=== PATIENT | female | born 1990 | race Caucasian/White ===

== ENCOUNTER → 2016-11-12 | Outpatient (REF) | payer OTHER | LOC: M SFHCLERA 20:13 | PROVIDERS: ATTEND Nurse Practitioner Family | DX: R10.9 Unspecified abdominal pain (principal) ==

== ENCOUNTER 2018-04-12 19:52 | Emergency (ER) | payer OTHER ==
[2018-04-12 22:05] LABS: HEMATOCRIT 39.7 % (36.0-47.0); MEAN CORPUSCULAR HEMOGLOBIN 29.1 pg (27.0-33.0); MEAN CORPUSCULAR HGB CONC 32.7 g/dl (32.0-36.5); PLATELET COUNT, AUTOMATED 331 10^3/uL (150-450); RED BLOOD COUNT 4.46 10^6/uL (4.00-5.40); RED CELL DISTRIBUTION WIDTH 12.9 % (11.5-14.5); WHITE BLOOD COUNT 9.5 10^3/uL (4.0-10.0)
[2018-04-12] MEDS: IBUPROFEN 600 MG TAB PO (22:05)
[2018-04-12 22:19] LABS: AMORPHOUS SEDIMENT RFX LARGE (NEGATIVE); KETONE, URINE AUTO RFX NEGATIVE (NEGATIVE); LEUKOCYTE ESTERASE UR AUTO RFX NEGATIVE (NEGATIVE); NITRITE, URINE AUTO RFX NEGATIVE (NEGATIVE); RBC, URINE AUTO RFX 1 /HPF (0-3); SPECIFIC GRAVITY UR AUTO RFX 1.013 (1.002-1.035); SQUAM EPITHELIAL CELL UR AURFX 0 /HPF (0-6); WBC, URINE AUTO RFX 2 /HPF (0-3)
[2018-04-12 22:20] LABS: ANION GAP 6 MEQ/L (8-16); BLOOD UREA NITROGEN 10 MG/DL (7-18); CALCIUM LEVEL 8.9 MG/DL (8.5-10.1); CARBON DIOXIDE LEVEL 26 MEQ/L (21-32); CHLORIDE LEVEL 109 MEQ/L (98-107); GLOMERULAR FILTRATION RATE > 60.0 (>60); GLUCOSE, FASTING 96 MG/DL (70-100); SODIUM LEVEL 141 MEQ/L (136-145)
[2018-04-12] MEDS: diazePAM 10 MG TAB PO (22:45)
== END 2018-04-12 22:51 | disposition home or self-care (01) ==
LOC: M ED 19:52
DX: M54.6 Pain in thoracic spine (principal); E11.9 Type 2 diabetes mellitus without complications; Z79.84 Long term (current) use of oral hypoglycemic drugs; Z79.899 Other long term (current) drug therapy; Z88.5 Allergy status to narcotic agent; Z88.1 Allergy status to other antibiotic agents
CPT/HCPCS: 80048

== ENCOUNTER → 2018-08-23 | Outpatient (REF) | payer OTHER ==
[~2018-08-23] MED LIST: CETI10TA; DULO30CA PO; IBUP-1022 PO; METF750T; PANT40TA3; PRENCHW PO; SERT-155; SOMA350T PO; TOPI50TA9; VITAD1000T PO; WELLTAB40
== END ==
LOC: M SFHCLERA 17:07
PROVIDERS: ATTEND Physician Assistant
DX: J03.90 Acute tonsillitis, unspecified (principal)

== ENCOUNTER 2018-08-25 18:02 | Emergency (ER) | payer OTHER ==
[~2018-08-25] VITALS: Ht 157.5 cm; Wt 123.6 kg
[~2018-08-25 18:02] MED LIST changes: -DULO30CA PO; -PRENCHW PO; -VITAD1000T PO
[2018-08-25] MEDS ORDERED: VITAD1000T PO (18:08)
[2018-08-25] MEDS ORDERED: DULO30CA PO (18:08)
[2018-08-25] MEDS ORDERED: PRENCHW PO (18:08)
[2018-08-25 18:39] LABS: BASO % 0.3 % (0.0-1.0); EOS # 0.2 10^3/uL (0.0-0.50); EOS % 1.6 % (0.0-3.0); HEMATOCRIT 39.8 % (36.0-47.0); HEMOGLOBIN 13.6 g/dl (12.0-15.5); LYMPH # 3.2 10^3/uL (1.5-6.5); LYMPH % 34.5 % (24.0-44.0); MEAN CORPUSCULAR HEMOGLOBIN 29.8 pg (27.0-33.0); MEAN CORPUSCULAR HGB CONC 34.2 g/dl (32.0-36.5); MEAN CORPUSCULAR VOLUME 87.3 fl (80.0-96.0); MONO # 0.6 10^3/uL (0.0-0.8); MONO % 6.4 % (0.0-5.0); NEUTROPHILS # 5.4 10^3/uL (1.8-7.7); NEUTROPHILS % 56.9 % (36.0-66.0); PLATELET COUNT, AUTOMATED 312 10^3/uL (150-450); RED BLOOD COUNT 4.56 10^6/uL (4.00-5.40); WHITE BLOOD COUNT 9.4 10^3/uL (4.0-10.0)
[2018-08-25 18:56] LABS: BLOOD UREA NITROGEN 10 MG/DL (7-18); CARBON DIOXIDE LEVEL 25 MEQ/L (21-32); CHLORIDE LEVEL 106 MEQ/L (98-107); CREATININE FOR GFR 0.69 MG/DL (0.55-1.30); GLOMERULAR FILTRATION RATE > 60.0 (>60); GLUCOSE, FASTING 106 MG/DL (70-100); SODIUM LEVEL 139 MEQ/L (136-145)
[2018-08-25 19:07] LABS: HCG, SERUM QUALITATIVE NEGATIVE (NEGATIVE)
[2018-08-25 20:20] VITALS: BP 142/80
== END 2018-08-25 21:05 | disposition home or self-care (01) ==
LOC: M ED 18:02
DX: N92.1 Excessive and frequent menstruation with irregular cycle (principal); E28.2 Polycystic ovarian syndrome; E66.8 Other obesity; Z79.899 Other long term (current) drug therapy; Z88.2 Allergy status to sulfonamides; Z88.5 Allergy status to narcotic agent; Z88.8 Allergy status to other drugs, medicaments and biological substances

== ENCOUNTER 2018-11-02 19:49 | Emergency (ER) | payer OTHER ==
[~2018-11-02] VITALS: Ht 154.9 cm; Wt 125.6 kg
[~2018-11-02 19:49] MED LIST changes: +DULO30CA PO; +PRENCHW PO; +VITAD1000T PO
[2018-11-02 21:18] LABS: AMORPHOUS SEDIMENT SMALL (NEGATIVE); APPEARANCE, URINE CLOUDY (CLEAR); BACTERIA, URINE AUTO NEGATIVE (NEGATIVE); BILIRUBIN, URINE AUTO NEGATIVE (NEGATIVE); BLOOD, URINE BLOOD 2+ (NEGATIVE); COLOR, URINE YELLOW (YELLOW); GLUCOSE, URINE (UA) AUTO NEGATIVE (NEGATIVE); KETONE, URINE AUTO NEGATIVE (NEGATIVE); LEUKOCYTE ESTERASE, URINE AUTO TRACE (NEGATIVE); MUCUS, URINE SMALL (NEGATIVE); NITRITE, URINE AUTO NEGATIVE (NEGATIVE); PROTEIN, URINE AUTO NEGATIVE (NEGATIVE); RBC, URINE AUTO 8 /HPF (0-3); SPECIFIC GRAVITY URINE AUTO 1.016 (1.002-1.035); SQUAMOUS EPITHELIAL CELL UR AU 2 /HPF (0-6); UROBILINOGEN, URINE AUTO 0.2 mg/dL (0.0-2.0); WBC, URINE AUTO 2 /HPF (0-3)
[2018-11-02] MEDS ORDERED: IBUPROFEN 600 MG TAB PO ONE (23:00)
--- NOTE | 2018-11-02 23:11 | REPVR ---
EXAM: US Pelvis Complete, Transabdominal EXAM DATE/TIME: 11/02/2018 9:58 PM CLINICAL HISTORY: 28 years old, female; Pain; Abdominal pain; Lower abdomen TECHNIQUE: Imaging protocol: Real-time transabdominal pelvic ultrasound with image documentation. Complete exam. COMPARISON: CT ABD PELVIS WITH CONTRAST 11/11/2013 3:56 PM FINDINGS: Uterus/cervix: The uterus measures 7.9 cm in its cephalocaudad dimension and 3.6 x 4.7 cm in its AP and lateral dimensions transabdominal. The uterus measures 8.5 cm in its cephalocaudad dimension and 3.8 x 5.0 cm in its AP and lateral dimensions transvaginal. The endometrium measures 12 mm. There is an IUD in position in the uterus. Right adnexa: The right ovary measures 5.4 x 2.6 x 3.1 cm and demonstrates small follicles and normal blood flow. Left adnexa: The left ovary measures 4.0 x 2.6 x 3.7 cm and demonstrates blood flow. Free fluid: None. Bladder: The urinary bladder measures 4.4 x 3.6 x 6.1 cm. IMPRESSION: 1. Slight prominence of the ovaries which demonstrate normal blood flow. 2. IUD in position. 3. Otherwise negative pelvic sonogram. Electronically signed by: Duy Holder On 11/02/2018 23:11:16 PM
[2018-11-02] MEDS ORDERED: IBUP80TA PO (23:26)
[2018-11-02 23:34] VITALS: BP 132/73
== END 2018-11-02 23:35 | disposition home or self-care (01) ==
LOC: M ED 19:49
DX: N94.6 Dysmenorrhea, unspecified (principal); R11.0 Nausea; Z97.5 Presence of (intrauterine) contraceptive device; E28.2 Polycystic ovarian syndrome; Z87.42 Personal history of other diseases of the female genital tract; R51 Headache; K21.9 Gastro-esophageal reflux disease without esophagitis; Z88.5 Allergy status to narcotic agent; Z88.2 Allergy status to sulfonamides; Z79.899 Other long term (current) drug therapy

== ENCOUNTER 2018-12-31 13:58 | Emergency (ER) | payer OTHER ==
[~2018-12-31] VITALS: Ht 154.9 cm; Wt 112.7 kg
[~2018-12-31 13:58] MED LIST changes: -DULO30CA PO; +DULO30CA9 PO; +IBUP80TA PO
[2018-12-31 15:20] LABS: BASO # 0.1 10^3/uL (0.0-0.2); BASO % 0.6 % (0.0-1.0); EOS # 0.3 10^3/uL (0.0-0.50); HEMATOCRIT 39.6 % (36.0-47.0); HEMOGLOBIN 13.2 g/dl (12.0-15.5); LYMPH # 2.7 10^3/uL (1.5-6.5); LYMPH % 30.2 % (24.0-44.0); MEAN CORPUSCULAR HEMOGLOBIN 28.4 pg (27.0-33.0); MEAN CORPUSCULAR HGB CONC 33.3 g/dl (32.0-36.5); MEAN CORPUSCULAR VOLUME 85.2 fl (80.0-96.0); MONO # 0.8 10^3/uL (0.0-0.8); MONO % 9.4 % (0.0-5.0); NEUTROPHILS % 56.6 % (36.0-66.0); PLATELET COUNT, AUTOMATED 343 10^3/uL (150-450); RED BLOOD COUNT 4.65 10^6/uL (4.00-5.40); WHITE BLOOD COUNT 8.9 10^3/uL (4.0-10.0)
[2018-12-31 15:43] LABS: ALBUMIN 3.6 GM/DL (3.2-5.2); ALT/SGPT 45 U/L (12-78); BILIRUBIN,DIRECT < 0.1 MG/DL (0.0-0.2); BILIRUBIN,TOTAL 0.4 MG/DL (0.2-1.0); BLOOD UREA NITROGEN 8 MG/DL (7-18); CALCIUM LEVEL 8.7 MG/DL (8.5-10.1); CARBON DIOXIDE LEVEL 20 MEQ/L (21-32); CHLORIDE LEVEL 107 MEQ/L (98-107); CREATININE FOR GFR 0.62 MG/DL (0.55-1.30); GLOMERULAR FILTRATION RATE > 60.0 (>60); GLUCOSE, FASTING 79 MG/DL (70-100); LIPASE 310 U/L (73-393); POTASSIUM SERUM 3.5 MEQ/L (3.5-5.1); SODIUM LEVEL 140 MEQ/L (136-145); TOTAL PROTEIN 7.7 GM/DL (6.4-8.2)
[2018-12-31] MEDS ORDERED: ISOVUE-370 76% 100ML VIAL (Q9967) As Ordered ONE (15:45)
[2018-12-31] MEDS ORDERED: NS 1,000 ML IV ONE (16:15)
[2018-12-31] MEDS ORDERED: KETOROLAC 30 MG/ML VIAL (J1885) IV ONE (17:00)
--- NOTE | 2018-12-31 17:15 | REP ---
KUB: Single view. History: Rule out perforation. Comparison abdominal films are from January 03, 2014. Findings: There are clips and sutures in the left upper quadrant and clips in the right upper quadrant are seen. The bowel gas pattern is normal. Psoas margins and flank stripes are intact. No mass organomegaly is appreciated. There appears to be a vaginal tampon in place. Exam is otherwise unremarkable. Impression: Postoperative clips and sutures in the upper quadrants bilaterally. Normal bowel gas pattern. The most sensitive radiograph for free intraperitoneal air is in upright chest x-ray. Electronically Signed by Joseph Khan MD 12/31/2018 06:35 P
[2018-12-31 17:30] VITALS: BP 106/57
--- NOTE | 2019-01-01 07:19 | REP ---
CT ANGIOGRAM CHEST: 12/31/2018. Clinical history: Left upper quadrant pain, recent surgery. Technique: The patient received a bolus of 100 ml Isovue 370, scanning through the chest with CT angiogram protocol with both coronal and sagittal thick slab MIP and standard reformats. Comparison: [place] chest 01/03/2014. Findings: Minor dependent atelectatic changes noted deep sulci, left greater than right. No effusion, infiltrate, linear atelectasis, mass or pulmonary nodule. There is no pleural thickening, pleural-based mass or calcification, pneumothorax, pneumomediastinum. Heart size grossly normal. No pericardial thickening or effusion and no hiatal hernia. I see no pathologic sized mediastinal or hilar adenopathy. The aorta has no aneurysm or dissection. The main, right and left pulmonary arteries are without filling defects within the mediastinum. The lobar, segmental and subsegmental pulmonary arteries are without filling defects or vessel cutoff on either side. There is no axillary or supraclavicular mass. Bone windows show the sternum, manubrium, visualized clavicles, the left AC joint, small portions of humeral heads, scapulae, ribs and thoracic spine without fracture, destructive lesion, compression deformity or other acute finding. The abdomen will be evaluated on the CT abdomen and pelvis study. There is evidence for prior gastric bypass. Impression: 1. No CT evidence of pulmonary thromboembolism. No vessel cutoff. The aorta, mediastinal contours. Cardiac silhouette, airway and the bony chest were all unremarkable. Electronically Signed by Hernando Acevedo MD 01/01/2019 11:37 A
--- NOTE | 2019-01-01 07:28 | REP ---
CT ABDOMEN AND PELVIS WITH IV CONTRAST ONLY: 12/31/2018. Comparison: X-ray 12/31/2018, CT abdomen and pelvis 11/11/2013. Clinical history: Left upper quadrant pain, recent surgery. Technique: Bolus of 100 mL Isovue-370, scanning through the abdomen and pelvis with coronal and sagittal reconstructions. Findings: The lung bases with minimal dependent atelectatic change, but otherwise clear. Heart not enlarged. No pericardial thickening, effusion or hiatal hernia. There is evidence of gastric bypass with gastric staple lines evident. There are surgical clips in the left upper quadrant with anastomotic sutures inferior to the gastric stapling. Some adjacent edema in the fat suggests that this is a recent surgical site. There are some subcutaneous fat tracts suggesting recent laparoscopy port. There are two on the left and one on the right. There is no evidence of perforation, ascites or free air. No abscess. Small bowel loops not abnormally dilated. Abdominal portion of the colon shows no sign of colitis or diverticulitis. The transverse and left colon are collapsed. No evidence of ventral hernia. Liver and spleen are not enlarged and show no focal lesion. Gallbladder surgically absent. There is no biliary dilatation. Adrenal glands normal. Kidneys without stone, mass, cyst or hydronephrosis. They show symmetric enhancement. No hydroureters, ureteral stone or perinephric edema. The aorta and branches unremarkable. Bone windows show lumbar, lower thoracic spine, their posterior elements and the visualized ribs all grossly intact. CT pelvis: The sacrum, SI joints, pelvis and hips are symmetric and without acute finding on the bone window review. No distal ureteral dilatation. Bladder nearly empty but without mass, stone or wall thickening. Uterus anteverted, not enlarged. A tampon is seen in the vaginal vault. There is trace amount of pelvic free fluid, but no perforation, free air or abscess in the pelvis. There is no colitis or diverticulitis. The distal left colon, sigmoid and rectum are collapsed and otherwise unremarkable. Ovaries grossly intact. There are a few pelvic phleboliths. The cecum was unremarkable. Appendix absent. No ventral or inguinal hernia in the pelvis nor inguinal adenopathy. Impression: 1. Status post gastric bypass with postsurgical changes with anastomotic sutures and ankita in the left upper quadrant, separate from the gastric stapling seen and without perforation, abscess, ascites or free air. 2. No ventral or inguinal hernia, hiatal hernia, solid organ abnormality in the upper abdomen, hydronephrosis or renal stone disease. The colon with stool and gas in the right side and with collapsed transverse left and rectosigmoid colon unremarkable. No inflammatory changes in small bowel loops. No perforation, abscess or free air. Electronically Signed by Hernando Acevedo MD 01/01/2019 11:37 A
--- NOTE | 2019-01-01 17:44 | ECGEPIP ---
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
== END 2018-12-31 17:52 | disposition home or self-care (01) ==
LOC: M ED 13:58
DX: S39.011A Strain of muscle, fascia and tendon of abdomen, initial encounter (principal); X58.XXXA Exposure to other specified factors, initial encounter; Y92.9 Unspecified place or not applicable; Y93.9 Activity, unspecified; Y99.9 Unspecified external cause status; K95.89 Other complications of other bariatric procedure; Z98.84 Bariatric surgery status; F41.9 Anxiety disorder, unspecified; F32.9 Major depressive disorder, single episode, unspecified; E28.2 Polycystic ovarian syndrome; K21.9 Gastro-esophageal reflux disease without esophagitis
CPT/HCPCS: 36415; 71275; 74018; 74177; 80048; 80076; 81001; 83605; 83690; 85025; 93005; 96361; 96374; 99284; J1885; Q9967

== ENCOUNTER 2019-02-08 15:31 | Emergency (ER) | payer OTHER ==
[~2019-02-08] VITALS: Ht 154.9 cm; Wt 107.3 kg
[2019-02-08] MEDS ORDERED: bariatric vitamin (15:39)
[2019-02-08] MEDS ORDERED: NS 1,000 ML IV ONE (16:45)
[2019-02-08] MEDS: GASTROGRAFIN SOLUTION 30ML PO SCH ×2 (17:30→17:33)
[2019-02-08 17:49] LABS: BASO % 0.3 % (0.0-1.0); EOS # 0.1 10^3/uL (0.0-0.50); EOS % 0.9 % (0.0-3.0); HEMATOCRIT 38.6 % (36.0-47.0); HEMOGLOBIN 12.7 g/dl (12.0-15.5); LYMPH # 2.9 10^3/uL (1.5-6.5); LYMPH % 38.8 % (24.0-44.0); MEAN CORPUSCULAR HEMOGLOBIN 29.8 pg (27.0-33.0); MEAN CORPUSCULAR HGB CONC 32.9 g/dl (32.0-36.5); MEAN CORPUSCULAR VOLUME 90.6 fl (80.0-96.0); MONO # 0.5 10^3/uL (0.0-0.8); MONO % 6.3 % (0.0-5.0); NEUTROPHILS % 53.4 % (36.0-66.0); PLATELET COUNT, AUTOMATED 262 10^3/uL (150-450); RED BLOOD COUNT 4.26 10^6/uL (4.00-5.40); WHITE BLOOD COUNT 7.5 10^3/uL (4.0-10.0)
[2019-02-08 18:36] LABS: ALBUMIN 3.2 GM/DL (3.2-5.2); ALT/SGPT 73 U/L (12-78); BILIRUBIN,TOTAL 0.3 MG/DL (0.2-1.0); BLOOD UREA NITROGEN 5 MG/DL (7-18); CALCIUM LEVEL 8.7 MG/DL (8.5-10.1); CARBON DIOXIDE LEVEL 22 MEQ/L (21-32); CHLORIDE LEVEL 110 MEQ/L (98-107); CREATININE FOR GFR 0.52 MG/DL (0.55-1.30); GLOMERULAR FILTRATION RATE > 60.0 (>60); GLUCOSE, FASTING 80 MG/DL (70-100); LIPASE 136 U/L (73-393); POTASSIUM SERUM 4.1 MEQ/L (3.5-5.1); SODIUM LEVEL 138 MEQ/L (136-145); TOTAL PROTEIN 7.1 GM/DL (6.4-8.2)
[2019-02-08 18:37] LABS: BILIRUBIN,DIRECT < 0.1 MG/DL (0.0-0.2)
[2019-02-08] MEDS ORDERED: ISOVUE-370 76% 100ML VIAL (Q9967) As Ordered ONE (18:39)
--- NOTE | 2019-02-08 19:28 | REP ---
Clinical: Abdominal pain with recent gastric bypass surgery. Technique: Axial contrast enhanced images from the lung bases to the pubic symphysis using oral (per protocol) and 100 ml Isovue 370 intravenous contrast material with coronal and sagittal re-formations. Comparison: 12/31/2018. Findings: Lung bases are clear. Visualized heart and pericardium normal. Liver, spleen, pancreas, bilateral adrenal glands and kidneys are normal. Evidence for prior cholecystectomy. Evaluation of the enteric system demonstrates stable appearance to gastric bypass surgery with small/decreased amount of fluid in the excluded portion of the residual stomach. There is no evidence for bowel obstruction or acute inflammatory process. Pelvis demonstrates normal bladder and age-appropriate uterus/adnexa. No pelvic fluid. No ascites. No free air. No adenopathy. Abdominal aorta and vasculature without aneurysm or dissection. Musculoskeletal structures are intact and without focal osseous abnormality. Impression: 1. No acute abdominopelvic pathology appreciated. 2. Normal appearance to the gastric bypass and enteric system. 3. No ascites, focal inflammatory stranding, or adenopathy. Electronically Signed by Antonio Shahid MD 02/08/2019 07:19 P
[2019-02-09 00:32] VITALS: BP 111/64
== END 2019-02-09 00:40 | disposition short-term general hospital (02) ==
LOC: M ED 15:31
DX: K22.2 Esophageal obstruction (principal); E28.2 Polycystic ovarian syndrome; F33.9 Major depressive disorder, recurrent, unspecified; F41.9 Anxiety disorder, unspecified; K21.9 Gastro-esophageal reflux disease without esophagitis; Z79.899 Other long term (current) drug therapy; Z88.2 Allergy status to sulfonamides
CPT/HCPCS: 36415; 74177; 80048; 80076; 81001; 83690; 85025; 87086; 99284; Q9963; Q9967

== ENCOUNTER 2019-03-21 13:33 | Emergency (ER) | payer OTHER ==
[~2019-03-21] VITALS: Ht 154.9 cm; Wt 98.2 kg
[~2019-03-21 13:33] MED LIST changes: +bariatric vitamin
[2019-03-21] MEDS ORDERED: NUVAMIS2 (13:40)
[2019-03-21 14:36] LABS: BASO % 0.3 % (0.0-1.0); EOS # 0.1 10^3/uL (0.0-0.50); HEMATOCRIT 38.5 % (36.0-47.0); HEMOGLOBIN 12.5 g/dl (12.0-15.5); LYMPH # 2.5 10^3/uL (1.5-6.5); LYMPH % 35.7 % (24.0-44.0); MEAN CORPUSCULAR HEMOGLOBIN 29.6 pg (27.0-33.0); MEAN CORPUSCULAR HGB CONC 32.5 g/dl (32.0-36.5); MONO # 0.5 10^3/uL (0.0-0.8); MONO % 7.4 % (0.0-5.0); NEUTROPHILS # 3.9 10^3/uL (1.8-7.7); NEUTROPHILS % 55.5 % (36.0-66.0); PLATELET COUNT, AUTOMATED 253 10^3/uL (150-450); RED BLOOD COUNT 4.23 10^6/uL (4.00-5.40); WHITE BLOOD COUNT 7.1 10^3/uL (4.0-10.0)
[2019-03-21 15:02] LABS: ALBUMIN 3.6 GM/DL (3.2-5.2); ALT/SGPT 36 U/L (12-78); BILIRUBIN,DIRECT 0.1 MG/DL (0.0-0.2); BILIRUBIN,TOTAL 0.5 MG/DL (0.2-1.0); BLOOD UREA NITROGEN 7 MG/DL (7-18); CARBON DIOXIDE LEVEL 23 MEQ/L (21-32); CHLORIDE LEVEL 110 MEQ/L (98-107); CREATININE FOR GFR 0.58 MG/DL (0.55-1.30); GLOMERULAR FILTRATION RATE > 60.0 (>60); GLUCOSE, FASTING 87 MG/DL (70-100); LIPASE 103 U/L (73-393); POTASSIUM SERUM 3.7 MEQ/L (3.5-5.1); SODIUM LEVEL 142 MEQ/L (136-145); TOTAL PROTEIN 6.9 GM/DL (6.4-8.2)
[2019-03-21] MEDS ORDERED: ONDANSETRON 4MG/2ML VIAL (J2405) IV ONE (16:15)
[2019-03-21] MEDS ORDERED: MORPHINE 2 MG/ML 1ML SYRINGE (J2270) IV ONE ×2 (16:15→18:00)
[2019-03-21] MEDS ORDERED: NS 1,000 ML IV ONE (16:15)
[2019-03-21] MEDS: GASTROGRAFIN SOLUTION 30ML PO SCH ×2 (16:54→17:23)
[2019-03-21 18:20] LABS: HCG, SERUM QUANTITATIVE < 1.0 MIU/ML
[2019-03-21] MEDS ORDERED: ISOVUE-370 76% 100ML VIAL (Q9967) As Ordered ONE (18:32)
--- NOTE | 2019-03-21 19:32 | REPVR ---
EXAM: CT Abdomen and Pelvis With Contrast EXAM DATE/TIME: 03/21/2019 6:36 PM CLINICAL HISTORY: 28 years old, female; Abdominal pain; Epigastric; Additional info: Epigastric pain, n/v/d, HX of esophageal stricture S/P lrygb TECHNIQUE: Imaging protocol: Axial computed tomography images of the abdomen and pelvis with intravenous contrast. Coronal and sagittal reformatted images were created and reviewed. Radiation optimization: All CT scans at this facility use at least one of these dose optimization techniques: automated exposure control; mA and/or kV adjustment per patient size (includes targeted exams where dose is matched to clinical indication); or iterative reconstruction. Contrast material: ISOVUE 370;Contrast volume: 100 ml;Contrast route: IV; COMPARISON: CT ABD/PEL W/IV ORAL CONTRAS 02/08/2019 6:42 PM FINDINGS: Liver: Small focal area of fatty deposition within the left hepatic lobe, unchanged. Gallbladder and bile ducts: Status post cholecystectomy. Pancreas: Unremarkable. No ductal dilation. Spleen: Unremarkable. No splenomegaly. Adrenals: Normal. No mass. Kidneys and ureters: Unremarkable. No stones. No hydronephrosis. Stomach and bowel: Status post gastric bypass. The small bowel and colon are unremarkable. Appendix: No evidence of appendicitis. Intraperitoneal space: Unremarkable. No free air. No significant fluid collection. Vasculature: Unremarkable. No abdominal aortic aneurysm. Lymph nodes: Unremarkable. No enlarged lymph nodes. Bladder: Unremarkable as visualized. Reproductive: Unremarkable as visualized. Bones/joints: No acute fracture. Soft tissues: Unremarkable. IMPRESSION: No acute abnormality. Electronically signed by: Theron Montgomery On 03/21/2019 19:32:10 PM
[2019-03-21 20:24] VITALS: BP 101/57
== END 2019-03-21 20:45 | disposition home or self-care (01) ==
LOC: M ED 13:33
DX: R10.13 Epigastric pain (principal); K21.9 Gastro-esophageal reflux disease without esophagitis; E28.2 Polycystic ovarian syndrome; R51 Headache; Z87.19 Personal history of other diseases of the digestive system; Z79.3 Long term (current) use of hormonal contraceptives; Z79.899 Other long term (current) drug therapy; Z88.1 Allergy status to other antibiotic agents
CPT/HCPCS: 74177; 80048; 80076; 81001; 83690; 84702; 85025; 87507; 96374; 96375; 96376; 99284; J2270; J2405; Q9963; Q9967

== ENCOUNTER → 2019-04-07 | Outpatient (CLI) | payer OTHER ==
[~2019-04-07] MED LIST changes: +AUGM875T28 PO; +CHOL100029 PO; +E-Z-GAS II EFFERVESCENT PACKET (SODIUM BICARB./CITRIC ACID/SIMETHICONE) As Ordered ONE; +E-Z-HD 98% w/w 340GM SUSP BTL As Ordered ONE; +E-Z-PAQUE 96% w/w SUSP 176GM BTL As Ordered ONE; -METF750T; +METF750T36; +MUCI600T31 PO; +NUVAMIS2; +PRED20TA PO; +PROAAER10 INH; -SERT-155; +SERT50TA29; +VENL75CA47 PO; -VITAD1000T PO
--- NOTE | 2019-04-07 14:16 | REP ---
Examination Requested: Upper G.I. Series With KUB Reason For Exam: Nausea and vomiting status post Leticia-en-Y a Upper GI Air Contrast The procedure was performed by BRIANNA Encinas, under the direct supervision of Dr. Gonzalez. The images were reviewed with Dr. Gonzalez. The advance scout film shows no organomegaly or pathological masses. The intestinal gas pattern appears normal. Liquid barium and gas producing crystals were given in the erect position as well as liquid barium in the prone oblique position in order to perform a double contrast upper GI examination. The oral and pharyngeal stages of deglutition were unremarkable. Esophageal transport is efficient and there is no esophagitis, stricture, or mucosal ring noted. There is no] hiatal hernia. Gastroesophageal reflux was not visualized throughout the course of the exam. The stomach demonstrates postsurgical changes consistent with the patient's history of gastric bypass. There is free flow of contrast through the anastomosis. There is no evidence of stricture or obstruction. There is no evidence of gastritis, neoplasm, or ulcer disease. The visualized portion of the proximal small bowel appears normal in course and caliber. Impression: 1. Unremarkable upper GI in a patient status post Leticia-en-Y gastric bypass. 0.1 minutes of fluoroscopy time was utilized for this procedure. Some fluoroscopic images are performed with last image hold technology. These images require no additional radiation. Reviewed by BRIANNA Valentino 04/07/2019 12:08 P Electronically Signed by Ike Gonzalez MD 04/07/2019 02:08 P
== END ==
LOC: M RAD 07:54
PROVIDERS: ATTEND Surgery
DX: R11.2 Nausea with vomiting, unspecified (principal)

== ENCOUNTER 2019-06-28 22:41 | Emergency (ER) | payer OTHER ==
[~2019-06-28] VITALS: Ht 154.9 cm; Wt 84.5 kg
[2019-06-28 22:41] VITALS: BP 123/58
[~2019-06-28 22:41] MED LIST changes: -AUGM875T28 PO; -E-Z-GAS II EFFERVESCENT PACKET (SODIUM BICARB./CITRIC ACID/SIMETHICONE) As Ordered ONE; -E-Z-HD 98% w/w 340GM SUSP BTL As Ordered ONE; -E-Z-PAQUE 96% w/w SUSP 176GM BTL As Ordered ONE; -MUCI600T31 PO; -PRED20TA PO; -PROAAER10 INH; -VENL75CA47 PO
[2019-06-28] MEDS ORDERED: VENL75CA47 PO (22:46)
[2019-06-28] MEDS ORDERED: PROAAER10 INH (22:57)
[2019-06-28] MEDS ORDERED: MUCI600T31 PO (22:58)
[2019-06-28] MEDS ORDERED: PRED20TA PO (22:58)
[2019-06-28] MEDS ORDERED: AUGM875T28 PO (22:58)
[2019-06-28] MEDS ORDERED: predniSONE 20 MG TAB PO ONE (23:00)
[2019-06-28] MEDS ORDERED: AUGMENTIN 875 MG TAB PO ONE (23:00)
== END 2019-06-28 23:06 | disposition home or self-care (01) ==
LOC: M ED 22:41
DX: J01.90 Acute sinusitis, unspecified (principal); J20.9 Acute bronchitis, unspecified; R51 Headache; K21.9 Gastro-esophageal reflux disease without esophagitis; E28.2 Polycystic ovarian syndrome; F41.9 Anxiety disorder, unspecified; F32.9 Major depressive disorder, single episode, unspecified; Z79.899 Other long term (current) drug therapy; Z88.5 Allergy status to narcotic agent; Z88.8 Allergy status to other drugs, medicaments and biological substances

== ENCOUNTER 2019-09-25 21:49 | Emergency (ER) | payer OTHER ==
[~2019-09-25] VITALS: Ht 154.9 cm; Wt 86.5 kg
[~2019-09-25 21:49] MED LIST changes: +AUGM875T28 PO; +MUCI600T31 PO; +PRED20TA PO; +PROAAER10 INH; +VENL75CA47 PO
[2019-09-25 22:59] LABS: BASO % 0.3 % (0.0-1.0); EOS # 0.3 10^3/uL (0.0-0.5); EOS % 3.2 % (0.0-3.0); HEMATOCRIT 37.9 % (36.0-47.0); HEMOGLOBIN 12.3 g/dl (12.0-15.5); MEAN CORPUSCULAR HEMOGLOBIN 29.6 pg (27.0-33.0); MEAN CORPUSCULAR HGB CONC 32.5 g/dl (32.0-36.5); MEAN CORPUSCULAR VOLUME 91.3 fl (80.0-96.0); MONO # 0.7 10^3/uL (0.0-0.8); MONO % 7.6 % (0.0-5.0); NEUTROPHILS # 4.1 10^3/uL (1.5-8.5); NEUTROPHILS % 44.7 % (36.0-66.0); PLATELET COUNT, AUTOMATED 264 10^3/uL (150-450); RED BLOOD COUNT 4.15 10^6/uL (4.00-5.40); WHITE BLOOD COUNT 9.1 10^3/uL (4.0-10.0)
[2019-09-25 23:58] LABS: ALBUMIN 3.4 GM/DL (3.2-5.2); ALT/SGPT 16 U/L (12-78); BILIRUBIN,DIRECT < 0.1 MG/DL (0.0-0.2); BILIRUBIN,TOTAL 0.2 MG/DL (0.2-1.0); BLOOD UREA NITROGEN 10 MG/DL (7-18); CALCIUM LEVEL 8.8 MG/DL (8.5-10.1); CARBON DIOXIDE LEVEL 26 MEQ/L (21-32); CHLORIDE LEVEL 109 MEQ/L (98-107); CREATININE FOR GFR 0.52 MG/DL (0.55-1.30); GLOMERULAR FILTRATION RATE > 60.0 (>60); GLUCOSE, FASTING 87 MG/DL (70-100); HCG, SERUM QUANTITATIVE 12691 MIU/ML; LIPASE 128 U/L (73-393); SODIUM LEVEL 140 MEQ/L (136-145); TOTAL PROTEIN 6.5 GM/DL (6.4-8.2)
--- NOTE | 2019-09-26 04:14 | REPVR ---
PROCEDURE INFORMATION: Exam: US First Trimester, Transabdominal Exam date and time: 09/26/2019 1:22 AM Age: 29 years old Clinical indication: complicated by abdominal or pelvic pain; Generalized abdominal pain; First trimester; Gestational age or lmp: 08/12/19; ; Additional info: Pain hcg + TECHNIQUE: Imaging protocol: Real-time transabdominal obstetrical ultrasound of the maternal pelvis and a first trimester , less than 14 weeks 0 days, with image documentation. COMPARISON: US PELVIC NON-OB COMPLETE 11/02/2018 9:43 PM FINDINGS: GESTATION: Gestation: Gestational sac within the uterus containing a yolk sac and embryonic disc. No heartbeat at this time. Mean sac size is 11 mm suggesting an age of 5 weeks 6 days. Placenta: Unremarkable. No subchorionic bleed. Amniotic fluid: Amniotic and coelomic fluid are normal for gestational age. BIOMETRY: Estimated gestational age: The composite age is 5 weeks 6 days. The EDC would be 05/22/2020. [place]orne-Rump length: The crown-rump length is 2.5 mm suggesting an age of 5 weeks 6 days. MATERNAL: Uterus: The uterus measures 8.9 cm in its cephalocaudad dimension and 5.3 x 5.6 cm in its AP and lateral dimensions transabdominal. The uterus measures 9.1 cm in its cephalocaudad dimension and 5.0 x 6.2 cm in its AP and lateral dimensions transvaginal. Cervix: Unremarkable. Right adnexa: The right ovary measures 3.3 x 4.4 x 2.6 cm and demonstrates arterial and venous blood flow. Left adnexa: The left ovary measures 2.8 x 3.5 x 3.0 cm and demonstrates arterial and venous blood flow. Intraperitoneal: No intraperitoneal free fluid. IMPRESSION: 1. Gestational sac with yolk sac and probable early pole with no heartbeat at this time. Estimated age is 5 weeks 6 days. Follow-up in 1-2 weeks may be of benefit for further evaluation. 2. Otherwise negative pelvic sonogram. Electronically signed by: Duy Holder On 09/26/2019 04:13:33 AM
[2019-09-26 04:15] VITALS: BP 135/66
== END 2019-09-26 04:16 | disposition home or self-care (01) ==
LOC: M ED 21:49
DX: Z32.01 Encounter for pregnancy test, result positive (principal); O99.341 Other mental disorders complicating pregnancy, first trimester; O99.841 Bariatric surgery status complicating pregnancy, first trimester; Z3A.01 Less than 8 weeks gestation of pregnancy; Z79.899 Other long term (current) drug therapy; Z88.5 Allergy status to narcotic agent; Z88.8 Allergy status to other drugs, medicaments and biological substances

== ENCOUNTER 2019-10-15 15:22 | Emergency (ER) | payer OTHER ==
[~2019-10-15] VITALS: Ht 154.9 cm; Wt 85.6 kg
[2019-10-15] MEDS ORDERED: MULTCAP PO (15:38)
[2019-10-15] MEDS ORDERED: VITA30004 PO (15:38)
[2019-10-15] MEDS ORDERED: PREN1TAB18 PO (15:38)
[2019-10-15] MEDS ORDERED: OYST1TAB PO (15:38)
[2019-10-15] MEDS ORDERED: NS 1,000 ML IV ONE (16:15)
[2019-10-15] MEDS ORDERED: METOCLOPRAMIDE INJ 10MG/2ML VIAL (J2765) IV ONE (16:15)
[2019-10-15 16:25] LABS: BASO % 0.3 % (0.0-1.0); EOS # 0.1 10^3/uL (0.0-0.5); EOS % 1.4 % (0.0-3.0); HEMATOCRIT 35.6 % (36.0-47.0); HEMOGLOBIN 11.9 g/dl (12.0-15.5); LYMPH # 3.2 10^3/uL (1.5-5.0); LYMPH % 36.2 % (24.0-44.0); MEAN CORPUSCULAR HEMOGLOBIN 30.3 pg (27.0-33.0); MEAN CORPUSCULAR HGB CONC 33.4 g/dl (32.0-36.5); MEAN CORPUSCULAR VOLUME 90.6 fl (80.0-96.0); MONO # 0.6 10^3/uL (0.0-0.8); NEUTROPHILS # 4.9 10^3/uL (1.5-8.5); NEUTROPHILS % 54.8 % (36.0-66.0); PLATELET COUNT, AUTOMATED 276 10^3/uL (150-450); RED BLOOD COUNT 3.93 10^6/uL (4.00-5.40); WHITE BLOOD COUNT 8.9 10^3/uL (4.0-10.0)
[2019-10-15 17:26] LABS: ALBUMIN 3.4 GM/DL (3.2-5.2); ALT/SGPT 25 U/L (12-78); BILIRUBIN,DIRECT < 0.1 MG/DL (0.0-0.2); HCG, SERUM QUANTITATIVE 76846 MIU/ML; LIPASE 124 U/L (73-393); TOTAL PROTEIN 6.3 GM/DL (6.4-8.2)
[2019-10-15 17:28] LABS: BILIRUBIN,TOTAL < 0.1 MG/DL (0.2-1.0)
[2019-10-15] MEDS ORDERED: REGL10TA6 PO (18:51)
[2019-10-15 18:54] VITALS: BP 108/63
--- NOTE | 2019-10-16 08:18 | REP ---
FIRST TRIMESTER ULTRASOUND: Real-time sonographic evaluation of gravid uterus performed. There is a single living intrauterine gestation. Estimated gestational age is 9 weeks based on a crown-rump length of 23 mm, EDC 05/19/2020. heart rate is 160 beats per minute. There is no subchorionic hemorrhage. No maternal adnexal region abnormality is seen. Ovaries appear normal. Electronically Signed by Ike Bagley MD 10/16/2019 06:11 P
== END 2019-10-15 19:01 | disposition home or self-care (01) ==
LOC: M ED 15:22
DX: O21.9 Vomiting of pregnancy, unspecified (principal); Z3A.09 9 weeks gestation of pregnancy; O99.841 Bariatric surgery status complicating pregnancy, first trimester; Z87.42 Personal history of other diseases of the female genital tract; Z79.899 Other long term (current) drug therapy; Z88.5 Allergy status to narcotic agent; Z88.8 Allergy status to other drugs, medicaments and biological substances
CPT/HCPCS: 76801; 80047; 80076; 81001; 83690; 84702; 85025; 86901; 87086; 96361; 96374; 99284; J2765

== ENCOUNTER → 2019-12-01 | Outpatient (CLI) | payer BC ==
[~2019-12-01] MED LIST changes: +MULTCAP PO; +OYST1TAB PO; +PREN1TAB18 PO; +REGL10TA6 PO; +VITA30004 PO
[2019-12-01 16:21] LABS: BASO % 0.4 % (0.0-1.0); EOS # 0.1 10^3/uL (0.0-0.5); EOS % 1.1 % (0.0-3.0); HEMATOCRIT 35.2 % (36.0-47.0); LYMPH % 30.1 % (24.0-44.0); MEAN CORPUSCULAR HEMOGLOBIN 31.3 pg (27.0-33.0); MEAN CORPUSCULAR HGB CONC 34.1 g/dl (32.0-36.5); MEAN CORPUSCULAR VOLUME 91.7 fl (80.0-96.0); MONO # 0.7 10^3/uL (0.0-0.8); MONO % 6.9 % (0.0-5.0); NEUTROPHILS # 6.1 10^3/uL (1.5-8.5); NEUTROPHILS % 61.2 % (36.0-66.0); PLATELET COUNT, AUTOMATED 286 10^3/uL (150-450); RED BLOOD COUNT 3.84 10^6/uL (4.00-5.40)
[2019-12-01 16:33] LABS: CALCIUM LEVEL 8.8 MG/DL (8.5-10.1)
[2019-12-01 16:50] LABS: FOLATE 23.2 NG/ML (>5.4); VITAMIN B12 LEVEL 421 PG/ML (247-911)
[2019-12-01 17:59] LABS: CHLAMYDIA DNA AMPLIFICATION NEGATIVE (NEGATIVE); GC DNA AMPLIFICATION NEGATIVE (NEGATIVE)
[2019-12-02 08:17] LABS: RUBELLA IgG QUALITATIVE IMMUNE (IMMUNE)
[2019-12-02 08:46] LABS: HIV 1&2 SCREEN CENTAUR NEGATIVE (NEGATIVE)
[2019-12-02 08:48] LABS: HEPATITIS B SURFACE ANTIGEN NEGATIVE (NEGATIVE)
== END ==
LOC: M WUC 15:00
PROVIDERS: ATTEND Advanced Practice Midwife
DX: O99.841 Bariatric surgery status complicating pregnancy, first trimester (principal); Z3A.00 Weeks of gestation of pregnancy not specified

== ENCOUNTER → 2019-12-12 | Outpatient (CLI) | payer BC, OTHER | LOC: M WUC 11:29 | PROVIDERS: ATTEND Obstetrics & Gynecology | DX: Z34.82 Encounter for supervision of other normal pregnancy, second trimester (principal); Z36.89 Encounter for other specified antenatal screening ==

== ENCOUNTER → 2020-01-06 | Outpatient (CLI) | payer BC ==
--- NOTE | 2020-01-06 14:14 | REP ---
OBSTETRIC SONOGRAPHY: HISTORY: Supervision of for anatomy. FINDINGS: Scanning through the gravid uterus demonstrates a single living intrauterine gestation in a variable lie. motion is observed and heart rate is recorded at 152 beats per minute. A posterior grade 1 placenta is seen without evidence of previa or abruption. Amniotic fluid is subjectively normal. Closed cervical length measured transabdominally is 3.1 cm. No extrauterine abnormality is observed. There has been appropriate interval growth. No abnormality is observed. Three-vessel cord is less than optimally seen. The following additional anatomic structures are identified and felt to be unremarkable: cranium, choroid plexus, cavum, cerebellum and posterior fossa, nuchal fold, face and profile, four-chamber heart with left and right ventricular outflow tract views, diaphragm, left-sided stomach, abdominal wall cord insertion, kidneys and bladder, spine, upper and lower extremities. Biometry Chart: BPD 4.7 cm = 20 weeks 1 day HC 17.8 cm = 20 weeks 2 days AC 15.8 cm = 20 weeks 6 days FL 3.3 cm = 20 weeks 3 days HL 3.3 cm = 21 weeks 1 day HC/AC ratio normal 1.12. Cephalic index normal 0.73. Estimated weight 366 grams, 0 pounds 12 ounces, 22nd percentile for 21 weeks 3 days. IMPRESSION: Viable single intrauterine gestation at 20 weeks 1 day by today's composite sonographic criteria. Expected gestational age estimate based on prior sonography is 21 weeks 3 days. There has been appropriate interval growth. CODIE by prior sonography May 15, 2020. Three-vessel cord less than optimally seen. Otherwise, anatomic survey is unremarkable.
== END ==
LOC: M WHC 09:37
PROVIDERS: ATTEND Advanced Practice Midwife
DX: Z36.89 Encounter for other specified antenatal screening (principal); Z3A.20 20 weeks gestation of pregnancy

== ENCOUNTER → 2020-02-06 | Outpatient (REF) | payer BC ==
[2020-02-06 15:59] LABS: HEMATOCRIT 34.3 % (36.0-47.0); HEMOGLOBIN 11.4 g/dl (12.0-15.5); MEAN CORPUSCULAR HEMOGLOBIN 31.2 pg (27.0-33.0); MEAN CORPUSCULAR HGB CONC 33.2 g/dl (32.0-36.5); PLATELET COUNT, AUTOMATED 295 10^3/uL (150-450); RED BLOOD COUNT 3.65 10^6/uL (4.00-5.40); WHITE BLOOD COUNT 10.4 10^3/uL (4.0-10.0)
== END ==
LOC: M PLALAB 13:48
PROVIDERS: ATTEND Nurse Practitioner Women's Health
DX: Z3A.24 24 weeks gestation of pregnancy (principal)

== ENCOUNTER → 2020-02-06 | Outpatient (CLI) | payer BC ==
[~2020-02-06] MED LIST changes: +B-COTAB25 PO; +FOLTTAB9 PO; +MAPA500T2 PO; +MECL12.589 PO; +OMEP10CASR PO; +PANT40TA29; -PANT40TA3; +PRENTAB9 PO; +SERT25TA85 PO; +TUMS500C PO; +ZYRTTAB8 PO
--- NOTE | 2020-02-07 01:47 | REP ---
REASON: Followup anatomy for three-vessel umbilical cord. Multiple ultrasonographic images of the gravid uterus show a single living intrauterine gestation in the breech presentation. Doppler interrogation of the heart shows a heart rate of 143 beats per minute. The placenta is posterior and not low lying. The subjective amniotic fluid volume is within normal limits. The cervix measures 3.2 cm in length and is closed. Evaluation of the maternal adnexal spaces shows no abnormalities. CHART: BPD 5.8 cm = 23 weeks 4 days HC 22.9 cm = 24 weeks 6 days AC 20.7 cm = 25 weeks 2 days FL 4.7 cm = 25 weeks 4 days The estimated weight is 797 grams, which is at the 29th percentile for a 25-week 6-day gestational age. Three-vessel umbilical cord was seen. IMPRESSION: Single living intrauterine gestation, as described above, with an estimated gestational age of 24 weeks 6 days via composite criteria and an estimated date of delivery of 05/22/2020 by today's exam. No anomalies were detected. The three-vessel umbilical cord was well seen.
== END ==
LOC: M WHC 13:05
PROVIDERS: ATTEND Nurse Practitioner Women's Health
DX: Z36.2 Encounter for other antenatal screening follow-up (principal); Z3A.24 24 weeks gestation of pregnancy; O99.842 Bariatric surgery status complicating pregnancy, second trimester

== ENCOUNTER 2020-02-23 18:09 | Emergency (ER) | payer BC ==
[~2020-02-23] VITALS: Ht 154.9 cm; Wt 90.1 kg
[2020-02-23 18:09] VITALS: BP 114/65
[~2020-02-23 18:09] MED LIST changes: -B-COTAB25 PO; -FOLTTAB9 PO; -MAPA500T2 PO; -MECL12.589 PO; -OMEP10CASR PO; -PRENTAB9 PO; -SERT25TA85 PO; -TUMS500C PO; -ZYRTTAB8 PO
[2020-02-23] MEDS ORDERED: PRENTAB9 PO (19:05)
[2020-02-23] MEDS ORDERED: TUMS500C PO (19:05)
[2020-02-23] MEDS ORDERED: FOLTTAB9 PO (19:05)
[2020-04-29] MEDS ORDERED: B-COTAB25 PO (12:39)
[2020-04-29] MEDS ORDERED: SERT25TA85 PO (12:39)
[2020-04-29] MEDS ORDERED: MECL12.589 PO (12:39)
[2020-04-29] MEDS ORDERED: MAPA500T2 PO (12:39)
== END 2020-02-23 18:34 | disposition admitted as inpatient to this hospital (09) ==
LOC: M ED 18:09
DX: Z53.21 Procedure and treatment not carried out due to patient leaving prior to being seen by health care provider (principal)

== ENCOUNTER 2020-02-23 18:40 | Outpatient (CLI) | payer BC ==
[~2020-02-23] VITALS: Ht 154.9 cm; Wt 90.0 kg
[~2020-02-23 18:40] MED LIST changes: -PANT40TA29; +PANT40TA3
[2020-02-23 18:56] VITALS: BP 109/59
[2020-02-23] MEDS ORDERED: PRENTAB9 PO (19:05)
[2020-02-23] MEDS ORDERED: TUMS500C PO (19:05)
[2020-02-23] MEDS ORDERED: FOLTTAB9 PO (19:05)
--- NOTE | 2020-02-24 17:19 | IPN ---
DATE: 02/23/2020 A 29-year-old 1 at 28 weeks gestation, presents with diffuse upper abdominal pain for the last week. The pain is intermittent. It can be sharp and severe. She has no nausea or vomiting. Bowel movements are normal. Appetite is normal. No urinary symptoms. There is good movement. OBJECTIVE: Afebrile. Vital Signs: Stable. No apparent distress. Head and Neck Exam: Normal. Lungs: Clear. Heart: Regular. Abdomen: Nontender, gravid. heart tones: Category 1. Contractions: None. Sterile vaginal exam: Cervix long, closed, posterior, firm. Extremities: Nontender. Transabdominal ultrasound: Vertex fetus, normal amniotic fluid. Adequate growth. Normal fundal placenta. Excellent movements noted. ASSESSMENT: A 29-year-old 1 at 28 weeks gestation, presents with abdominal pain, likely consistent with musculoskeletal discomfort. PLAN: Patient will be discharged home. Recommend rest. She will followup in the office as scheduled on 02/27/2020.
== END 2020-02-23 20:50 | disposition home or self-care (01) ==
LOC: M LDO 18:40
PROVIDERS: ATTEND Specialist
DX: O26.893 Other specified pregnancy related conditions, third trimester (principal); R10.10 Upper abdominal pain, unspecified; Z3A.28 28 weeks gestation of pregnancy
CPT/HCPCS: 76815; G0378; G0463

== ENCOUNTER → 2020-03-05 | Outpatient (CLI) | payer BC ==
[~2020-03-05] MED LIST changes: +B-COTAB25 PO; +FOLTTAB9 PO; +MAPA500T2 PO; +MECL12.589 PO; +OMEP10CASR PO; +PANT40TA29; -PANT40TA3; +PRENTAB9 PO; +SERT25TA85 PO; +TUMS500C PO; +ZYRTTAB8 PO
--- NOTE | 2020-03-05 09:17 | REP ---
Clinical: Growth evaluation. Comparison: 02/06/2020 . Findings: Examination demonstrates a single live intrauterine in cephalic presentation. motion is identified by technologist. Placenta is noted posterior and grade I I without evidence for placenta previa or abruption. Amniotic fluid volume is normal. Cervix measures 3.2 cm in length and appears closed. No evidence for nuchal cord. Gestational age by LMP 29 weeks 3 days with CODIE 05/18/2020 . Gestational age by current measurements 28 weeks 6 days with CODIE 05/22/2020 . FHR equals 134 beats per minute. Estimated weight 1273 grams ( 27th percentile). Impression: Single live intrauterine in cephalic presentation demonstrating appropriate interval growth. No gross abnormalities are identified. Electronically Signed by Antonio Shahid MD 03/05/2020 09:08 A
== END ==
LOC: M WHC 07:55
PROVIDERS: ATTEND Advanced Practice Midwife
DX: O99.843 Bariatric surgery status complicating pregnancy, third trimester (principal); Z3A.28 28 weeks gestation of pregnancy

== ENCOUNTER 2020-03-15 14:04 | Emergency (ER) | payer BC ==
[~2020-03-15 14:04] MED LIST changes: -B-COTAB25 PO; -MAPA500T2 PO; -MECL12.589 PO; -OMEP10CASR PO; -SERT25TA85 PO; -ZYRTTAB8 PO
[2020-04-22 12:22] LABS: APPEARANCE, URINE CLEAR (CLEAR); BACTERIA, URINE AUTO NEGATIVE (NEGATIVE); BILIRUBIN, URINE AUTO NEGATIVE (NEGATIVE); BLOOD, URINE BLOOD NEGATIVE (NEGATIVE); COLOR, URINE YELLOW (YELLOW); GLUCOSE, URINE (UA) AUTO NEGATIVE (NEGATIVE); KETONE, URINE AUTO NEGATIVE (NEGATIVE); LEUKOCYTE ESTERASE, URINE AUTO NEGATIVE (NEGATIVE); NITRITE, URINE AUTO NEGATIVE (NEGATIVE); PROTEIN, URINE AUTO NEGATIVE (NEGATIVE); RBC, URINE AUTO 0 /HPF (0-3); SPECIFIC GRAVITY URINE AUTO 1.006 (1.002-1.035); SQUAMOUS EPITHELIAL CELL UR AU 2 /HPF (0-6); UROBILINOGEN, URINE AUTO 0.2 mg/dL (0.0-2.0); WBC, URINE AUTO 3 /HPF (0-3)
[2020-04-22 14:19] LABS: BASO % 0.2 % (0.0-1.0); EOS # 0.1 10^3/uL (0.0-0.5); EOS % 0.9 % (0.0-3.0); HEMATOCRIT 32.3 % (36.0-47.0); HEMOGLOBIN 10.6 g/dl (12.0-15.5); LYMPH % 21.9 % (24.0-44.0); MEAN CORPUSCULAR HEMOGLOBIN 29.4 pg (27.0-33.0); MEAN CORPUSCULAR HGB CONC 32.8 g/dl (32.0-36.5); MEAN CORPUSCULAR VOLUME 89.7 fl (80.0-96.0); MONO # 0.6 10^3/uL (0.0-0.8); MONO % 6.3 % (0.0-5.0); NEUTROPHILS # 6.5 10^3/uL (1.5-8.5); NEUTROPHILS % 70.4 % (36.0-66.0); PLATELET COUNT, AUTOMATED 264 10^3/uL (150-450); WHITE BLOOD COUNT 9.3 10^3/uL (4.0-10.0)
[2020-04-29] MEDS ORDERED: MAPA500T2 PO (12:39)
[2020-04-29] MEDS ORDERED: B-COTAB25 PO (12:39)
[2020-04-29] MEDS ORDERED: MECL12.589 PO (12:39)
[2020-04-29] MEDS ORDERED: SERT25TA85 PO (12:39)
--- NOTE | 2020-05-02 16:13 | ECGEPIP ---
SINUS RHYTHM NORMAL ECG PRWP SEE SCANNED DOWNTIME REPORT MTDD
[2020-05-25 14:54] LABS: ALT/SGPT 15 IU/L (0-32); BLOOD UREA NITROGEN 6 MG/DL (7-18); CALCIUM LEVEL 8.3 MG/DL (8.5-10.1); CARBON DIOXIDE LEVEL 24 mmol/L (20-29); CHLORIDE LEVEL 109 MEQ/L (98-107); CPK CREATINE PHOSPHOKINASE 23 U/L (26-192); CREATININE FOR GFR 0.33 MG/DL (0.55-1.30); GLOMERULAR FILTRATION RATE > 60.0 (>60); GLUCOSE, FASTING 80 MG/DL (70-100); POTASSIUM SERUM 3.8 MEQ/L (3.5-5.1); SODIUM LEVEL 140 MEQ/L (136-145)
[2020-05-25 14:55] LABS: ALBUMIN 2.7 GM/DL (3.2-5.2); BILIRUBIN,DIRECT < 0.1 MG/DL (0.0-0.2); BILIRUBIN,TOTAL 0.2 MG/DL (0.2-1.0); CK-MB VALUE MASS < 1.0 NG/ML (<3.6); MB/CK RELATIVE INDEX 4.34 (< OR =4); THYROID STIMULATING HORMONE 0.947 uIU/ML (0.358-3.740); TOTAL PROTEIN 6.1 GM/DL (6.4-8.2); TROPONIN I < 0.02 NG/ML (< 0.10)
== END 2020-03-15 15:36 | disposition home or self-care (01) ==
LOC: M ED 14:04
DX: O99.89 Other specified diseases and conditions complicating pregnancy, childbirth and the puerperium (principal); R55 Syncope and collapse; Z3A.30 30 weeks gestation of pregnancy; Z79.899 Other long term (current) drug therapy

== ENCOUNTER 2020-03-17 16:18 | Emergency (ER) | payer BC ==
[2020-03-17] MEDS ORDERED: ACETAMINOPHEN 500 MG TAB ONE (18:30)
[2020-03-17] MEDS ORDERED: MECLIZINE 25 MG TABLET ONE (18:30)
[2020-03-17] MEDS ORDERED: ONDANSETRON 4MG/2ML VIAL ONE (18:30)
[2020-03-17] MEDS ORDERED: ACETAMINOPHEN 500 MG TAB As Ordered ONE (18:36)
[2020-03-17] MEDS ORDERED: ONDANSETRON 4MG/2ML VIAL As Ordered ONE (20:15)
[2020-03-17] MEDS ORDERED: MECLIZINE 25 MG TABLET As Ordered ONE (20:22)
[2020-04-22 01:28] LABS: BASO % 0.2 % (0.0-1.0); EOS # 0.1 10^3/uL (0.0-0.5); EOS % 1.1 % (0.0-3.0); HEMATOCRIT 32.5 % (36.0-47.0); LYMPH # 2.8 10^3/uL (1.5-5.0); LYMPH % 29.3 % (24.0-44.0); MEAN CORPUSCULAR HEMOGLOBIN 30.1 pg (27.0-33.0); MEAN CORPUSCULAR HGB CONC 33.8 g/dl (32.0-36.5); MEAN CORPUSCULAR VOLUME 88.8 fl (80.0-96.0); MONO # 0.7 10^3/uL (0.0-0.8); MONO % 7.2 % (0.0-5.0); NEUTROPHILS # 5.8 10^3/uL (1.5-8.5); NEUTROPHILS % 61.7 % (36.0-66.0); PLATELET COUNT, AUTOMATED 291 10^3/uL (150-450); RED BLOOD COUNT 3.66 10^6/uL (4.00-5.40); WHITE BLOOD COUNT 9.5 10^3/uL (4.0-10.0)
[2020-04-22 20:24] LABS: APPEARANCE, URINE HAZY (CLEAR); BACTERIA, URINE AUTO 1+ (NEGATIVE); BILIRUBIN, URINE AUTO NEGATIVE (NEGATIVE); BLOOD, URINE BLOOD NEGATIVE (NEGATIVE); COLOR, URINE YELLOW (YELLOW); GLUCOSE, URINE (UA) AUTO 1+ mg/dL (NEGATIVE); KETONE, URINE AUTO NEGATIVE (NEGATIVE); LEUKOCYTE ESTERASE, URINE AUTO TRACE (NEGATIVE); MUCUS, URINE SMALL (NEGATIVE); NITRITE, URINE AUTO NEGATIVE (NEGATIVE); PROTEIN, URINE AUTO NEGATIVE (NEGATIVE); RBC, URINE AUTO 2 /HPF (0-3); SPECIFIC GRAVITY URINE AUTO 1.017 (1.002-1.035); SQUAMOUS EPITHELIAL CELL UR AU 12 /HPF (0-6); UROBILINOGEN, URINE AUTO 0.2 mg/dL (0.0-2.0); WBC, URINE AUTO 5 /HPF (0-3)
[2020-04-22 20:34] LABS: ALBUMIN 2.9 GM/DL (3.2-5.2); ALT/SGPT 14 U/L (12-78); BILIRUBIN,DIRECT < 0.1 MG/DL (0.0-0.2); BILIRUBIN,TOTAL 0.1 MG/DL (0.2-1.0); BLOOD UREA NITROGEN 6 MG/DL (7-18); CALCIUM LEVEL 8.6 MG/DL (8.5-10.1); CARBON DIOXIDE LEVEL 23 MEQ/L (21-32); CHLORIDE LEVEL 108 MEQ/L (98-107); GLOMERULAR FILTRATION RATE > 60.0 (>60); GLUCOSE, FASTING 84 MG/DL (70-100); POTASSIUM SERUM 4.1 MEQ/L (3.5-5.1); SODIUM LEVEL 137 MEQ/L (136-145); TOTAL PROTEIN 6.5 GM/DL (6.4-8.2)
[2020-04-29] MEDS ORDERED: MAPA500T2 PO (12:39)
[2020-04-29] MEDS ORDERED: SERT25TA85 PO (12:39)
[2020-04-29] MEDS ORDERED: MECL12.589 PO (12:39)
[2020-04-29] MEDS ORDERED: B-COTAB25 PO (12:39)
--- NOTE | 2020-05-01 15:08 | ECGEPIP ---
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
[2020-05-27 14:20] LABS: CK-MB VALUE MASS < 1.0 NG/ML (<3.6); CPK CREATINE PHOSPHOKINASE 20 U/L (26-192); FREE T4 0.92 NG/DL (0.76-1.46); TROPONIN I < 0.02 NG/ML (< 0.10)
== END 2020-03-17 22:40 | disposition home or self-care (01) ==
LOC: M ED 16:18
DX: O26.893 Other specified pregnancy related conditions, third trimester (principal); O26.93 Pregnancy related conditions, unspecified, third trimester; O99.843 Bariatric surgery status complicating pregnancy, third trimester; Z3A.31 31 weeks gestation of pregnancy; Z79.899 Other long term (current) drug therapy; Z88.5 Allergy status to narcotic agent; Z88.1 Allergy status to other antibiotic agents
CPT/HCPCS: 70450; 76775; 80048; 80076; 81001; 82550; 82553; 84439; 84443; 84484; 85025; 87086; 93005; 96361; 96374; 99284; J2405

== ENCOUNTER → 2020-03-26 | Outpatient (CLI) | payer BC ==
[~2020-03-26] MED LIST changes: +B-COTAB25 PO; +MAPA500T2 PO; +MECL12.589 PO; +OMEP10CASR PO; +SERT25TA85 PO; +ZYRTTAB8 PO
--- NOTE | 2020-05-09 10:39 | REP ---
OBSTETRIC ULTRASOUND FOR GROWTH Delay in reporting results from malfunction of the hospital computer system as result of malware attack. FINDINGS: There is a single intrauterine gestation in a cephalic presentation. The placenta is posterior with grade 2 maturity without previa or abruptio. heart rate is 134 beats per minute. Amniotic fluid volume subjectively is normal. The amniotic fluid index is 15.9. Cervix measures 3.6 cm in length. The composite gestational age by [facility] ultrasound is 32 weeks 6 days. Estimated date of confinement (EDC) is 05/15/2020. Estimated weight is 1879 grams. This corresponds to the 27th percentile. No further evaluation is requested or performed at this time. MTDD
== END ==
LOC: M WHC 05:45
PROVIDERS: ATTEND Specialist
DX: O99.843 Bariatric surgery status complicating pregnancy, third trimester (principal); Z3A.22 22 weeks gestation of pregnancy

== ENCOUNTER → 2020-04-26 | Outpatient (REF) | payer BC | LOC: M LAB REF 17:25 | PROVIDERS: ATTEND Advanced Practice Midwife | DX: O99.843 Bariatric surgery status complicating pregnancy, third trimester (principal); Z3A.00 Weeks of gestation of pregnancy not specified ==

== ENCOUNTER 2020-05-06 22:30 | Outpatient (CLI) | payer BC, MEDICAID ==
[~2020-05-06] VITALS: Ht 154.9 cm; Wt 96.6 kg
[~2020-05-06 22:30] MED LIST changes: -OMEP10CASR PO; -ZYRTTAB8 PO
[2020-05-06 22:46] VITALS: BP 102/63
[2020-05-06] MEDS ORDERED: OMEP10CASR PO (23:03)
[2020-05-06] MEDS ORDERED: ZYRTTAB8 PO (23:03)
== END 2020-05-07 01:14 | disposition home or self-care (01) ==
LOC: M LDO 22:30
PROVIDERS: ATTEND Specialist
DX: O47.1 False labor at or after 37 completed weeks of gestation (principal); Z3A.38 38 weeks gestation of pregnancy
CPT/HCPCS: 59025; G0378; G0463

== ENCOUNTER 2020-05-13 08:38 | Inpatient (IN) | payer BC, MEDICAID ==
[2020-05-13] VITALS (11 sets, daily range): BP systolic 101–137; BP diastolic 53–75
[~2020-05-13] VITALS: Ht 154.9 cm; Wt 98.2 kg
[~2020-05-13 08:38] MED LIST changes: -MECL12.589 PO; +MECL12.590 PO; +OMEP10CASR PO; +ZYRTTAB8 PO
[2020-05-13] MEDS ORDERED: LACTATED RINGER'S 1000 ML IV STA (09:14)
[2020-05-13] MEDS ORDERED: PROMETHAZINE INJ 25 MG/ML VIAL (J2550) IV PRN (10:00)
[2020-05-13] MEDS ORDERED: miSOPROStol 25 MCG 1/4 TAB (S0191) PV ONE (10:00)
[2020-05-13] MEDS ORDERED: BUTORPHANOL 2 MG/ML INJ (J0595) IV PRN (10:00)
[2020-05-13 10:09] LABS: HEMATOCRIT 29.8 % (36.0-47.0); HEMOGLOBIN 9.6 g/dl (12.0-15.5); MEAN CORPUSCULAR HEMOGLOBIN 27.5 pg (27.0-33.0); MEAN CORPUSCULAR HGB CONC 32.2 g/dl (32.0-36.5); MEAN CORPUSCULAR VOLUME 85.4 fl (80.0-96.0); PLATELET COUNT, AUTOMATED 241 10^3/uL (150-450); RED BLOOD COUNT 3.49 10^6/uL (4.00-5.40); WHITE BLOOD COUNT 6.7 10^3/uL (4.0-10.0)
--- NOTE | 2020-05-13 10:24 | HPEPDOC ---
Obstetrical History & Physical General Date of Admission May 13, 2020 at 08:38 History of Present Illness Jyoti is a 29yo with SIUP at 39w2d by early u/s presenting for scheduled e lective IOL. She has had some episodes of nearly fainting she feels are related to "low sugars". She does have a history of sandi-en-Y gastric bypass performed in December 2018 as well as anxiety treated with sertraline. She feels good movement, no vb/lof/regular ctx. 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 Past Medical History Medical History Prior gastric bypass (sandi-en-Y) December 2018, obesity, PCOS, anxiety, seasonal allergies, GERD Surgical History: Appendectomy, Gallbladder, Tonsilectomy, [place] teeth, Other (Gastric bypass (sandi-en-Y) December 2018, TIF procedure/hiatal hernia repair) Family History Significant Family History: No pertinent family hx Social History Marital Status: Family situation: Spouse/partner home Psychosocial History: Anxiety * Smoker: non-smoker Alcohol: Denies Drugs: denies Allergies Coded Allergies: Blueberry (Verified Allergy, Intermediate, hives , 02/23/20) SEASONAL ALLERGIES (Verified Allergy, Intermediate, 05/13/20) dry eyes,stuffy nose,cough codeine (Verified Adverse Reaction, Mild, vomiting , 06/28/19) sulfamethoxazole (Verified Adverse Reaction, Mild, MEMORY LOSS, 06/28/19) trimethoprim (Verified Adverse Reaction, Mild, MEMORY LOSS, 06/28/19) Medications Scheduled B1/B2/Niacin/B12/Protease (B-Complex with B-12 Tablet) 1 Each Tablet, 1 TAB PO DAILY Calcium Carbonate (Calcium) 500 Mg Tablet, 2 TAB PO QHS Cetirizine HCl/Pseudoephedrine (Zyrtec-D Tablet) 1 Each Tab.er.12h, 1 TAB PO DAILY Cholecalciferol (Vitamin D3) (Vitamin D3) 3,000 Unit Tablet, 1,000 UNIT PO DAILY Multivitamin (Multivitamins) 1 Each Capsule, 1 CAP PO DAILY Omeprazole (Omeprazole) 10 Mg Capsule.dr, 20 MG PO DAILY No.137/Iron/Folic Acd ( Vitamin Tablet) 1 Each Tablet, 1 TAB PO DAILY Sertraline Hcl (Sertraline HCl) 25 Mg Tablet, 1 TAB PO DAILY Scheduled PRN Acetaminophen (Mapap) 500 Mg Tablet, 1,000 MG PO Q6HP PRN for DISCOMFORT Meclizine HCl (Meclizine HCl) 12.5 Mg Tablet, 12.5 MG PO Q6HP PRN for DIZZINESS Physical Examination Physical Examination GENERAL: Alert and oriented times three. ABDOMEN: Gravid and non-tender to touch. FETUS: Is vertex (VTX) by sterile vaginal examination (SVE) EXTREMITIES: No edema of BLE Laboratory Data 24H LABS Laboratory Tests 2 05/13/20 08:58: Serology Scanned Report Hepatitis B Testing 05/13/20 09:43: CBC/BMP Pertinent Laboratoy Data Blood Type: O+ RBC Antibody Screen: Negative HIV: Negative Hepatitis B: Negative Hepatitis C: Negative Rapid Plasma Reagin: Nonreactive Rubella: Immune Chlamydia/Gonorrhea: Negative Group B Streptococcus: Negative Anatomy Ultrasound Ultrasound Date: January 06, 2020 Placenta Location: Posterior Normal Anatomy: Yes Placenta Previa: No Steroid Therapy Steroid Therapy: No Vaginal Examination Dilation: 1cm Effacement: other (thick) Station: -3 Cervical Consistency: Medium Cervical Position: Middle Presentation: Cephalic presentation Assessment Heart Rate (FHR): 145 Variability: Moderate Accelerations: Positive Decelerations: None Tocometer Contractions: No Assessment/Plan Assessment Jyoti is a 29yo with SIUP at 39w2d by early u/s presenting for scheduled elective IOL. SCE 1/thick/-3, no ctx, Cat I FHRT. GBS negative. Cephalic by SCE. Vitals wnl, benign exam. History and course significant for: Prior gastric bypass (sandi-en-Y) December 2018, obesity, PCOS, anxiety, seasonal allergies, GERD. Most recent GS 27%ile. Plan Admit and orient. 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 Diet: regular lunch then clear liquids Group B Streptococcus (GBS) negative. Labs and intravenous (IV) per unit protocol. Counseled on cytotec, ba bulb, Pitocin and induction of labor (IOL). ba cervical bulb placed with 40cc NS and 25mcg PV cytotec. Will plan to re-dose cytotec 25mcg PO q4hr until good ctx pattern and cervical ripening achieved. Lactated Ringers (LR): Bolus 800 mL, then at 125 mL/hr if epidural is desired in active labor. Anticipate normal spontaneous delivery () Safe to proceed MD Petey Phan Katrina D MD May 13, 2020 10:08
[2020-05-13] MEDS: LR 1,000 ML IV SCH (11:35)
[2020-05-13] MEDS: miSOPROStol 25 MCG 1/4 TAB (S0191) PO SCH ×2 (14:23→18:31)
[2020-05-14] VITALS (64 sets, daily range): BP systolic 99–166; BP diastolic 51–83
--- NOTE | 2020-05-14 01:24 | IPNPDOC ---
Text Note Date of Service The patient was seen on 05/14/20. NOTE Intrapartum Note Pt doing well, was sleeping when I entered the room. Ctx are mild. Villa bulb fell out at 1314. Vitals wnl, afebrile Cat I FHRT with bl 125, +accels, -decels, mod anika Wykoff: ctx q3-6min SCE: /50/-2, soft Will begin pitocin and titrate per protocol Will continue to closely observe Plan to recheck in 4-6hr or earlier as indicated Safe to proceed Mariluz Angelo MD VS,Diana, I+O VSDiana I+O Laboratory Tests 05/13/20 09:57 Vital Signs Date Time Temp Pulse Resp B/P (MAP) Pulse Ox O2 Delivery O2 Flow Rate FiO2 05/13/20 18:33 75 16 110/59 (76) 05/13/20 16:27 95 Room Air 05/13/20 15:27 97.8 I&O- Last 24 Hours up to 6 AM 05/14/20 06:00 Intake Total 1040 ml Output Total 1400 ml Balance -360 ml Mariluz Angelo MD May 14, 2020 01:24
[2020-05-14] MEDS ORDERED: OXYTOCIN DRIP 30 UNITS in IV 1 EA IV SCH ×2 (01:30→21:00)
[2020-05-14] MEDS: LR 1,000 ML IV SCH ×3 (01:36→16:58)
--- NOTE | 2020-05-14 07:25 | IPNPDOC ---
Text Note Date of Service The patient was seen on 05/14/20. NOTE Intrapartum Note Pt doing well, ctx are definitely getting stronger. Pit at 8mu. She does not yet desire epidural and is interested in getting out of bed to walk around/sit on ball. Vitals wnl, afebrile Cat I FHRT with bl 140, +accels, -decels, mod anika Wilmer: ctx q2-3min SCE: 5/60/-2, softening Continue pitocin and titrate per protocol Will continue to closely observe Report to MELANY Ramriez at 0730 Safe to proceed Mariluz Angelo MD VS,Diana, I+O VS, Diana I+O Laboratory Tests 05/13/20 09:57 Vital Signs Date Time Temp Pulse Resp B/P (MAP) Pulse Ox O2 Delivery O2 Flow Rate FiO2 05/14/20 06:36 97.8 68 18 106/57 (73) 05/13/20 16:27 95 Room Air I&O- Last 24 Hours up to 6 AM 05/14/20 06:00 Intake Total 1040 ml Output Total 1400 ml Balance -360 ml Mariluz Angelo MD May 14, 2020 07:25
[2020-05-14] MEDS ORDERED: FENTANYL 2MCG/ML ROPIVACAINE 0.2% IN 0.9% NACL 100ML IVBAG As Ordered ONE (08:40)
[2020-05-14] MEDS: FENTANYL/ROPIVACAINE/NACL BAG 100 ML EPIDURAL SCH ×2 (09:50→17:51)
[2020-05-14] MEDS ORDERED: EPIDURAL/PCA KEYS XX PRN (10:30)
[2020-05-14] MEDS ORDERED: REFRIGERATOR IV KEYS XX PRN (10:30)
[2020-05-14] MEDS ORDERED: LACTATED RINGER'S 1000 ML IV PRN (10:30)
[2020-05-14] MEDS ORDERED: ePHEDrine SULFATE 25 MG/5 ML(5MG/ML) SYRINGE IV PRN (10:30)
[2020-05-14] MEDS ORDERED: ONDANSETRON 4MG/2ML VIAL IV PRN ×2 (10:30→20:45)
[2020-05-14] MEDS ORDERED: EPIDURAL COMMENT XX SCH (10:30)
[2020-05-14] MEDS ORDERED: NALOXONE INJ 0.4MG/1ML VIAL (J2310 PER 1MG) IV PRN (10:30)
[2020-05-14] MEDS ORDERED: diphenhydrAMINE 50MG/ML VIAL (J1200) IV PRN ×2 (10:30→20:45)
--- NOTE | 2020-05-14 12:25 | IPNPDOC ---
Obstetrical Progress Note Date of Service May 14, 2020 Subjective Patient reports she is feeling some pressure and feeling her contractions. She has had an epidural. Objective Vital Signs Date Time Temp Pulse Resp B/P (MAP) Pulse Ox O2 Delivery O2 Flow Rate FiO2 05/14/20 12:09 98.2 73 20 111/65 (80) 05/13/20 16:27 95 Room Air Assessment Heart Rate (FHR): 140 Variability: Moderate Accelerations: Positive Decelerations: None Heart Rate Tracing: Category I Tocometer Contractions: Yes Frequency: regular Sterile Vaginal Examination Dilation: 5 cm Effacement (%): 60% Station: -2 Cervical Consistency: Soft Cervical Position: Anterior Postion/Presentation: Cephalic presentation Assessment and Plan Age: 29 Status: Reassuring Group B Streptococcus: Negative Anticipate: Vaginal Delivery Additional Comments IV Pitocin is at 10 mu/min. AROM to a moderate amount of meconium fluid. Anesthesia notified to re-dose epidural. MAYKEL DOBBINS CNM May 14, 2020 12:25
[2020-05-14] MEDS ORDERED: fentaNYL 100 MCG/2 ML INJECTION (J3010) As Ordered ONE (12:35)
[2020-05-14] MEDS ORDERED: METHYLERGONOVINE MALEATE 0.2 MG/ML VIAL (J2210) As Ordered ONE (19:42)
[2020-05-14] MEDS ORDERED: METHYLERGONOVINE MALEATE 0.2 MG TAB PO PRN (20:30)
[2020-05-14] MEDS ORDERED: METHYLERGONOVINE MALEATE 0.2 MG/ML VIAL (J2210) IM ONE (20:30)
[2020-05-14] MEDS ORDERED: DIBUCAINE 1% OINTMENT 30GM TOP PRN (20:30)
[2020-05-14] MEDS ORDERED: RHOGAM 300 MCG (1500 IU) INJ (J2790) IM SCH (20:30)
[2020-05-14] MEDS ORDERED: DOCUSATE SODIUM 100MG CAPSULE PO PRN (20:30)
[2020-05-14] MEDS ORDERED: ACETAMINOPHEN TAB 650MG DOSE (2X325MG) PO PRN (20:30)
[2020-05-14] MEDS ORDERED: MEASLES,MUMPS,RUBELLA VACCINE INJ (MMR-II) (90707) SC SCH (20:30)
[2020-05-14] MEDS ORDERED: ANUSOL HC CREAM 30GM TOP PRN (20:30)
--- NOTE | 2020-05-14 20:35 | DNPDOC ---
[facility] Delivery Note Delivery Note DATE OF DELIVERY: 05/14/20 AT 1925 PREDELIVERY DIAGNOSIS: 39-3/7 weeks' gestation. POST DELIVERY DIAGNOSIS: Delivered. PROCEDURE: Spontaneous vaginal delivery. JUNIOR BOOKKEEPER: Maykel Ramirez CNM, TAYLOR ANESTHESIA: epidural. ESTIMATED BLOOD LOSS: 400 mL. FINDINGS: 6 pounds 15 ounces; 3160 grams; female , Score 8/9, nuchal cord times 1 tight; meconium, given a dose of methergine IM. DELIVERY SUMMARY: Patient is a 29-year-old female who is now a who presented to L&D for an elective induction of labor at 39.2 weeks gestation. She received cytotec, a ba bulb and IV Pitocin for induction. Jyoti requested an epidural for pain management. She progressed to fully dilated at 1902 and pushed to a living female in the ROBERTH position with restitution to LOT. A tight nuchal cord was noted. The anterior shoulder delivered with ease and the corpus immediately followed. The corpus delivered via [place]. The baby was placed on the maternal abdomen [id number] and active and crying with stimulation. The cord was clamped x2 after 2 minutes and cut by the FOB. The placenta delivered spontaneously and intact at 1931. Uterine hemostasis was achieved via rapid infusion of IV Pitocin, fundal massage, manual removal of clots from the lower uterine segment (one sweep) and IM Methergine. The vaginal, cervix, and perineum was inspected and found to have a small 1st degree perineal laceration that was repaired using a figure 8 with a 3.[address]-1 and a right labial laceration repaired with 3 interrupted sutures. Mom plans to breastfeed her . They are naming her Mague. Both mom and baby are in stable condition. All counts of instruments and sponges are correct. MAYKEL RAMIREZ CNM May 14, 2020 20:35
[2020-05-15 06:03] VITALS: BP 109/57
[2020-05-15] MEDS: FERROUS SULFATE 325MG TAB PO SCH (09:08)
[2020-05-15] MEDS: PRENATAL VITAMINS CHEWABLE TABLET PO SCH (09:08)
[2020-05-15] MEDS ORDERED: INFLUENZA QUADRIVALENT PF VACCINE 0.5ML SYRINGE IM ONE (12:45)
[2020-05-15] MEDS: ACETAMINOPHEN 500 MG TAB PO PRN (15:10)
[2020-05-15 18:02] VITALS: BP 115/54
[2020-05-16 06:23] VITALS: BP 113/55
[2020-05-16] MEDS: FERROUS SULFATE 325MG TAB PO SCH (08:00)
[2020-05-16] MEDS: PRENATAL VITAMINS CHEWABLE TABLET PO SCH (08:00)
[2020-05-16] MEDS ORDERED: INFLUENZA QUADRIVALENT PF VACCINE 0.5ML SYRINGE IM ONE (08:00)
[2020-05-16] MEDS: ACETAMINOPHEN 500 MG TAB PO PRN (08:00)
== END 2020-05-16 11:40 | disposition home or self-care (01) | DRG 560 ==
LOC: M LDI 08:38 → M OBS 05-14 22:09
PROVIDERS: ADMIT Obstetrics & Gynecology; ATTEND Obstetrics & Gynecology
PROC: 3E033VJ Introduction of Other Hormone into Peripheral Vein, Percutaneous Approach (ICD-10-PCS; 2020-05-13)
PROC: 3E0DXGC Introduction of Other Therapeutic Substance into Mouth and Pharynx, External Approach (ICD-10-PCS; 2020-05-13)
PROC: 10E0XZZ Delivery of Products of Conception, External Approach (ICD-10-PCS; principal; 2020-05-14)
PROC: 0HQ9XZZ Repair Perineum Skin, External Approach (ICD-10-PCS; 2020-05-14)
DX: O69.1XX0 Labor and delivery complicated by cord around neck, with compression, not applicable or unspecified (principal); O99.344 Other mental disorders complicating childbirth; R55 Syncope and collapse; Z37.0 Single live birth; Z3A.39 39 weeks gestation of pregnancy; Z79.899 Other long term (current) drug therapy; Z91.018 Allergy to other foods; Z88.5 Allergy status to narcotic agent; Z88.2 Allergy status to sulfonamides; Z88.8 Allergy status to other drugs, medicaments and biological substances; F41.9 Anxiety disorder, unspecified; O70.0 First degree perineal laceration during delivery; D64.9 Anemia, unspecified; O99.02 Anemia complicating childbirth

== ENCOUNTER → 2020-09-28 | Outpatient (REF) | payer OTHER, MEDICAID | LOC: M SFHCWAGY 16:57 | PROVIDERS: ATTEND Advanced Practice Midwife | DX: Z12.4 Encounter for screening for malignant neoplasm of cervix (principal) ==

== ENCOUNTER → 2020-11-15 | Outpatient (CLI) | payer OTHER, MEDICAID ==
[~2020-11-15] MED LIST changes: +MECL-136 PO; -MECL12.590 PO
[2020-11-15 18:16] LABS: ALBUMIN 3.9 GM/DL (3.2-5.2); ALT/SGPT 23 U/L (12-78); BILIRUBIN,TOTAL 0.2 MG/DL (0.2-1.0); BLOOD UREA NITROGEN 14 MG/DL (7-18); CALCIUM LEVEL 8.9 MG/DL (8.5-10.1); CARBON DIOXIDE LEVEL 24 MEQ/L (21-32); CHLORIDE LEVEL 108 MEQ/L (98-107); CHOLESTEROL LEVEL 171 MG/DL (<200); CHOLESTEROL RISK RATIO 3.288 (<5); FERRITIN 9 NG/ML (8-252); GLOMERULAR FILTRATION RATE > 60.0 (>60); GLUCOSE, FASTING 90 MG/DL (70-100); HDL CHOLESTEROL 52 MG/DL (>40); IRON (FE) 126 UG/DL (50-170); LDL CHOLESTEROL 92 MG/DL (<100); NON-HDL-C 119 MG/DL; PERCENT SATURATION 24.8 % (13.2-45.0); POTASSIUM SERUM 4.4 MEQ/L (3.5-5.1); SODIUM LEVEL 139 MEQ/L (136-145); TOTAL IRON BINDING CAPACITY 509 UG/DL (250-450); TOTAL PROTEIN 7.3 GM/DL (6.4-8.2); TRIGLYCERIDES LEVEL 134 MG/DL (<150)
[2020-11-15 18:18] LABS: HEMATOCRIT 41.2 % (36.0-47.0); HEMOGLOBIN 13.2 g/dl (12.0-15.5); MEAN CORPUSCULAR HEMOGLOBIN 29.5 pg (27.0-33.0); PLATELET COUNT, AUTOMATED 327 10^3/uL (150-450); RED BLOOD COUNT 4.48 10^6/uL (4.00-5.40); WHITE BLOOD COUNT 7.3 10^3/uL (4.0-10.0)
[2020-11-15 18:24] LABS: TOTAL 25(OH) VITAMIN D 44.3 NG/ML (30.0-100.0); VITAMIN B12 LEVEL 1256 PG/ML (247-911)
[2020-11-15 18:25] LABS: FOLATE > 24.0 NG/ML (>5.4)
== END ==
LOC: M WUC 14:49
PROVIDERS: ATTEND Registered Nurse
DX: Z13.220 Encounter for screening for lipoid disorders (principal); Z98.84 Bariatric surgery status

== ENCOUNTER → 2020-11-16 | Outpatient (CLI) | payer OTHER, MEDICAID ==
[2020-11-16 14:19] LABS: BASO % 0.5 % (0.0-1.0); EOS # 0.1 10^3/uL (0.0-0.5); EOS % 0.8 % (0.0-3.0); HEMATOCRIT 40.8 % (36.0-47.0); HEMOGLOBIN 13.3 g/dl (12.0-15.5); LYMPH # 2.7 10^3/uL (1.5-5.0); LYMPH % 41.2 % (24.0-44.0); MEAN CORPUSCULAR HGB CONC 32.6 g/dl (32.0-36.5); MEAN CORPUSCULAR VOLUME 91.9 fl (80.0-96.0); MONO # 0.4 10^3/uL (0.0-0.8); MONO % 5.8 % (2.0-8.0); NEUTROPHILS # 3.4 10^3/uL (1.5-8.5); NEUTROPHILS % 51.5 % (36.0-66.0); PLATELET COUNT, AUTOMATED 279 10^3/uL (150-450); RED BLOOD COUNT 4.44 10^6/uL (4.00-5.40); WHITE BLOOD COUNT 6.5 10^3/uL (4.0-10.0)
[2020-11-16 14:45] LABS: ERYTHROCYTE SEDIMENTATION RATE 5 mm/hr (0-20)
[2020-11-16 15:00] LABS: ALBUMIN 3.8 GM/DL (3.2-5.2); ALT/SGPT 23 U/L (12-78); BILIRUBIN,TOTAL 0.2 MG/DL (0.2-1.0); BLOOD UREA NITROGEN 12 MG/DL (7-18); CALCIUM LEVEL 9.1 MG/DL (8.5-10.1); CARBON DIOXIDE LEVEL 26 MEQ/L (21-32); CHLORIDE LEVEL 108 MEQ/L (98-107); CREATININE FOR GFR 0.64 MG/DL (0.55-1.30); FREE T3 2.4 PG/ML (2.2-4.0); FREE T4 0.91 NG/DL (0.76-1.46); GLOMERULAR FILTRATION RATE > 60.0 (>60); GLUCOSE, FASTING 164 MG/DL (70-100); MAGNESIUM LEVEL 2.2 MG/DL (1.8-2.4); POTASSIUM SERUM 3.9 MEQ/L (3.5-5.1); SODIUM LEVEL 140 MEQ/L (136-145); TOTAL PROTEIN 7.2 GM/DL (6.4-8.2)
[2020-11-16 15:11] LABS: HCG, SERUM QUALITATIVE NEGATIVE (NEGATIVE)
== END ==
LOC: M WUC 13:08
PROVIDERS: ATTEND Registered Nurse
DX: I49.9 Cardiac arrhythmia, unspecified (principal); R11.2 Nausea with vomiting, unspecified; R10.9 Unspecified abdominal pain

== ENCOUNTER → 2020-12-27 | Outpatient (CLI) | payer OTHER, MEDICAID ==
[2020-12-27 20:02] LABS: NT-PRO BNP 16 PG/ML (<125); TROPONIN I < 0.02 NG/ML (< 0.10)
== END ==
LOC: M WUC 15:25
PROVIDERS: ATTEND Registered Nurse
DX: R07.9 Chest pain, unspecified (principal)

== ENCOUNTER → 2021-02-07 | Outpatient (CLI) | payer OTHER, MEDICAID ==
--- NOTE | 2021-02-07 16:27 | REP ---
INDICATION: PATELLAR TENDINITIS. COMPARISON: 07/20/2014 TECHNIQUE: Five views FINDINGS: The compartments are symmetric and well maintained. There is no fracture, dislocation, or subluxation. IMPRESSION: No significant change from the prior exam. If patellar tendinitis/tendinopathy is of clinical concern consider follow-up with MRI <Electronically signed by Marcus Stephenson > 02/07/21 [id number]
== END ==
LOC: M SOG 15:20
PROVIDERS: ATTEND Orthopaedic Surgery Sports Medicine
DX: M76.51 Patellar tendinitis, right knee (principal)

== ENCOUNTER 2021-02-25 19:24 | Emergency (ER) | payer OTHER, MEDICAID ==
[~2021-02-25] VITALS: Ht 154.9 cm; Wt 79.5 kg
[2021-02-25 19:27] VITALS: BP 110/75
[2021-02-25] MEDS ORDERED: AZIT-12 (19:50)
[2021-02-25] MEDS ORDERED: TRAZ-252 (19:50)
[2021-02-25] MEDS ORDERED: VENL75TA2 (19:50)
[2021-02-25] MEDS ORDERED: ETON1VAG (19:50)
[2021-02-25 20:39] LABS: BASO % 0.4 % (0.0-1.0); EOS # 0.1 10^3/uL (0.0-0.5); EOS % 1.1 % (0.0-3.0); HEMOGLOBIN 13.2 g/dl (12.0-15.5); LYMPH # 3.2 10^3/uL (1.5-5.0); LYMPH % 40.9 % (24.0-44.0); MEAN CORPUSCULAR HEMOGLOBIN 29.9 pg (27.0-33.0); MEAN CORPUSCULAR VOLUME 90.5 fl (80.0-96.0); MONO # 0.5 10^3/uL (0.0-0.8); MONO % 6.5 % (2.0-8.0); NEUTROPHILS % 50.8 % (36.0-66.0); PLATELET COUNT, AUTOMATED 272 10^3/uL (150-450); RED BLOOD COUNT 4.42 10^6/uL (4.00-5.40); WHITE BLOOD COUNT 7.9 10^3/uL (4.0-10.0)
[2021-02-25 21:05] LABS: BLOOD UREA NITROGEN 10 MG/DL (7-18); CALCIUM LEVEL 8.9 MG/DL (8.5-10.1); CARBON DIOXIDE LEVEL 27 MEQ/L (21-32); CHLORIDE LEVEL 110 MEQ/L (98-107); CREATININE FOR GFR 0.53 MG/DL (0.55-1.30); GLOMERULAR FILTRATION RATE > 60.0 (>60); GLUCOSE, FASTING 91 MG/DL (70-100); POTASSIUM SERUM 4.3 MEQ/L (3.5-5.1); SODIUM LEVEL 142 MEQ/L (136-145)
[2021-02-25 21:10] LABS: HCG, SERUM QUALITATIVE NEGATIVE (NEGATIVE)
== END 2021-02-25 22:49 | disposition left against medical advice (07) ==
LOC: M ED 19:24
DX: Z53.21 Procedure and treatment not carried out due to patient leaving prior to being seen by health care provider (principal)

== ENCOUNTER → 2021-04-08 | Outpatient (CLI) | payer OTHER, MEDICAID ==
[~2021-04-08] MED LIST changes: +AZIT-12; +ETON1VAG; +TRAZ-252; +VENL75TA2
[2021-04-08 16:25] LABS: HEMATOCRIT 40.1 % (36.0-47.0); MEAN CORPUSCULAR HGB CONC 32.4 g/dl (32.0-36.5); MEAN CORPUSCULAR VOLUME 92.6 fl (80.0-96.0); PLATELET COUNT, AUTOMATED 335 10^3/uL (150-450); RED BLOOD COUNT 4.33 10^6/uL (4.00-5.40); WHITE BLOOD COUNT 7.9 10^3/uL (4.0-10.0)
[2021-04-08 16:56] LABS: ALBUMIN 3.6 GM/DL (3.2-5.2); ALT/SGPT 27 U/L (12-78); BILIRUBIN,TOTAL 0.3 MG/DL (0.2-1.0); BLOOD UREA NITROGEN 10 MG/DL (7-18); CALCIUM LEVEL 8.9 MG/DL (8.5-10.1); CARBON DIOXIDE LEVEL 29 MEQ/L (21-32); CHLORIDE LEVEL 109 MEQ/L (98-107); CREATININE FOR GFR 0.63 MG/DL (0.55-1.30); FREE T3 2.6 PG/ML (2.2-4.0); FREE T4 0.76 NG/DL (0.76-1.46); GLOMERULAR FILTRATION RATE > 60.0 (>60); GLUCOSE, FASTING 94 MG/DL (70-100); MAGNESIUM LEVEL 2.2 MG/DL (1.8-2.4); POTASSIUM SERUM 3.6 MEQ/L (3.5-5.1); SODIUM LEVEL 143 MEQ/L (136-145); TOTAL PROTEIN 6.9 GM/DL (6.4-8.2)
== END ==
LOC: M WUC 13:04
PROVIDERS: ATTEND Registered Nurse
DX: R00.2 Palpitations (principal); R11.0 Nausea; R10.9 Unspecified abdominal pain

== ENCOUNTER 2021-11-06 17:39 | Emergency (ER) | payer OTHER, MEDICAID ==
[~2021-11-06] VITALS: Ht 154.9 cm; Wt 85.0 kg
[2021-11-06 17:39] VITALS: BP 125/75
[2021-11-06] MEDS ORDERED: METH-1164 (17:46)
[2021-11-06] MEDS ORDERED: BUSP5TA (17:46)
[2021-11-07 12:52] LABS: GC DNA AMPLIFICATION NEGATIVE (NEGATIVE)
== END 2021-11-06 21:05 | disposition left against medical advice (07) ==
LOC: M ED 17:39
DX: Z53.21 Procedure and treatment not carried out due to patient leaving prior to being seen by health care provider (principal)

== ENCOUNTER → 2021-11-15 | Outpatient (CLI) | payer OTHER ==
[~2021-11-15] MED LIST changes: +BUSP5TA; +METH-1164
== END ==
LOC: M RAD 13:44
PROVIDERS: ATTEND Registered Nurse
DX: R10.2 Pelvic and perineal pain (principal)

== ENCOUNTER → 2022-01-01 | Outpatient (CLI) | payer OTHER ==
[2022-01-01 14:07] LABS: HCG, SERUM QUALITATIVE NEGATIVE (NEGATIVE)
== END ==
LOC: M WUC 10:34
PROVIDERS: ATTEND Registered Nurse
DX: N93.9 Abnormal uterine and vaginal bleeding, unspecified (principal)

== ENCOUNTER → 2022-01-06 | Outpatient (CLI) | payer OTHER | LOC: M WHC 14:29 | PROVIDERS: ATTEND Registered Nurse | DX: N93.9 Abnormal uterine and vaginal bleeding, unspecified (principal) ==

== ENCOUNTER 2022-01-27 12:05 | Emergency (ER) | payer OTHER ==
[~2022-01-27] VITALS: Ht 154.9 cm; Wt 84.0 kg
[2022-01-27] MEDS ORDERED: ATOM40CA9 (12:47)
[2022-01-27] MEDS ORDERED: KETOROLAC 30 MG/ML 1ML VIAL IV ONE (13:10)
[2022-01-27 13:33] LABS: BASO % 0.3 % (0.0-1.0); EOS # 0.1 10^3/uL (0.0-0.5); EOS % 0.7 % (0.0-3.0); HEMATOCRIT 38.6 % (36.0-47.0); HEMOGLOBIN 12.7 g/dl (12.0-15.5); LYMPH # 2.9 10^3/uL (1.5-5.0); LYMPH % 32.3 % (24.0-44.0); MEAN CORPUSCULAR HEMOGLOBIN 29.3 pg (27.0-33.0); MEAN CORPUSCULAR HGB CONC 32.9 g/dl (32.0-36.5); MEAN CORPUSCULAR VOLUME 89.1 fl (80.0-96.0); MONO # 0.6 10^3/uL (0.0-0.8); MONO % 6.3 % (2.0-8.0); NEUTROPHILS # 5.4 10^3/uL (1.5-8.5); NEUTROPHILS % 60.1 % (36.0-66.0); PLATELET COUNT, AUTOMATED 323 10^3/uL (150-450); RED BLOOD COUNT 4.33 10^6/uL (4.00-5.40); WHITE BLOOD COUNT 8.9 10^3/uL (4.0-10.0)
[2022-01-27 13:55] LABS: ALBUMIN 3.4 GM/DL (3.2-5.2); ALT/SGPT 21 U/L (12-78); BILIRUBIN,DIRECT 0.2 MG/DL (0.0-0.2); BILIRUBIN,TOTAL 0.3 MG/DL (0.2-1.0); BLOOD UREA NITROGEN 11 MG/DL (7-18); CALCIUM LEVEL 9.2 MG/DL (8.5-10.1); CARBON DIOXIDE LEVEL 25 MEQ/L (21-32); CHLORIDE LEVEL 108 MEQ/L (98-107); CREATININE FOR GFR 0.58 MG/DL (0.55-1.30); GLOMERULAR FILTRATION RATE > 60.0 (>60); GLUCOSE, FASTING 118 MG/DL (70-100); LIPASE 167 U/L (73-393); POTASSIUM SERUM 3.5 MEQ/L (3.5-5.1); SODIUM LEVEL 140 MEQ/L (136-145)
[2022-01-27 14:58] VITALS: BP 112/62
== END 2022-01-27 15:04 | disposition home or self-care (01) ==
LOC: M ED 12:05
DX: N93.8 Other specified abnormal uterine and vaginal bleeding (principal); N83.292 Other ovarian cyst, left side; N85.00 Endometrial hyperplasia, unspecified; Z98.84 Bariatric surgery status; Z79.3 Long term (current) use of hormonal contraceptives; Z79.899 Other long term (current) drug therapy; Z91.018 Allergy to other foods; Z88.5 Allergy status to narcotic agent; Z88.2 Allergy status to sulfonamides; J30.2 Other seasonal allergic rhinitis
CPT/HCPCS: 36415; 76830; 76856; 80048; 80076; 81001; 83690; 84702; 85025; 93976; 96374; 99284; J1885

== ENCOUNTER → 2022-09-08 | Outpatient (CLI) | payer OTHER ==
[~2022-09-08] MED LIST changes: +AMIT25TA17 PO; +ATOM40CA9 PO; -BUSP5TA; +BUSP5TA PO; +CETI10CH PO; +ETON68IM SC; +VITA100093 PO; +VITMTA PO
== END ==
LOC: M LABSMTC 09:54
PROVIDERS: ATTEND Anesthesiology
DX: Z01.812 Encounter for preprocedural laboratory examination (principal); Z20.822 Contact with and (suspected) exposure to COVID-19

== ENCOUNTER 2022-09-10 11:31 | Day surgery (SDC) | payer OTHER ==
[~2022-09-10] VITALS: Ht 154.9 cm; Wt 88.9 kg
[2022-09-10] MEDS ORDERED: BUPIVACAINE HCL 0.25% 10ML VIAL As Ordered ONE (11:36)
[2022-09-10] MEDS ORDERED: METHYLENE BLUE 0.5% (5MG/ML) 10 ML AMP (PROVAYBLUE) As Ordered ONE (11:37)
[2022-09-10] MEDS ORDERED: LR 1,000 ML IV SCH ×3 (12:05→14:25)
[2022-09-10 12:17] LABS: HEMATOCRIT 38.3 % (36.0-47.0); HEMOGLOBIN 12.7 g/dl (12.0-15.5); MEAN CORPUSCULAR HEMOGLOBIN 29.8 pg (27.0-33.0); MEAN CORPUSCULAR HGB CONC 33.2 g/dl (32.0-36.5); MEAN CORPUSCULAR VOLUME 89.9 fl (80.0-96.0); PLATELET COUNT, AUTOMATED 269 10^3/uL (150-450); RED BLOOD COUNT 4.26 10^6/uL (4.00-5.40); WHITE BLOOD COUNT 6.7 10^3/uL (4.0-10.0)
[2022-09-10] MEDS ORDERED: LIDOCAINE 2% 100MG/5ML SDV (FOR ANES.) As Ordered ONE (12:25)
[2022-09-10] MEDS ORDERED: ROCURONIUM BROMIDE 50MG/5ML VIAL As Ordered ONE (12:25)
[2022-09-10] MEDS ORDERED: fentaNYL 100 MCG/2 ML INJECTION As Ordered ONE (12:25)
[2022-09-10] MEDS ORDERED: ONDANSETRON 4MG 2ML VIAL As Ordered ONE (12:25)
[2022-09-10] MEDS ORDERED: KETOROLAC 60MG 2ML VIAL As Ordered ONE (12:25)
[2022-09-10] MEDS ORDERED: SUGAMMADEX SODIUM 500 MG/5 ML VIAL (BRIDION) As Ordered ONE (12:25)
[2022-09-10] MEDS ORDERED: MIDAZOLAM INJ 2MG/2ML VIAL As Ordered ONE (12:25)
[2022-09-10] MEDS ORDERED: propofoL 200 MG/20 ML VIAL As Ordered ONE (12:25)
[2022-09-10] MEDS ORDERED: ACETAMINOPHEN 1000MG 100ML IV BAG As Ordered ONE (12:42)
[2022-09-10] MEDS ORDERED: ONDANSETRON 4MG 2ML VIAL IV PRN (13:20)
[2022-09-10] MEDS ORDERED: fentaNYL 100 MCG/2 ML INJECTION IV PRN (13:20)
[2022-09-10] MEDS ORDERED: METOCLOPRAMIDE INJ 10MG/2ML VIAL IV PRN (13:20)
[2022-09-10] MEDS ORDERED: oxyCODONE 5MG TAB PO PRN (13:20)
[2022-09-10] MEDS ORDERED: HYDROMORPHONE HCL 0.5 MG/ 0.5 ML SYRINGE IV PRN (13:20)
[2022-09-10] MEDS ORDERED: OXYC1TAB23 PO (13:37)
[2022-09-10] MEDS ORDERED: IBUP80TA PO (13:37)
[2022-09-10 14:45] VITALS: BP 128/78
== END 2022-09-10 14:50 | disposition home or self-care (01) ==
LOC: M SDC 11:31
PROVIDERS: ATTEND Obstetrics & Gynecology
DX: N80.9 Endometriosis, unspecified (principal); N83.53 Torsion of ovary, ovarian pedicle and fallopian tube; F43.10 Post-traumatic stress disorder, unspecified; K21.9 Gastro-esophageal reflux disease without esophagitis; F41.9 Anxiety disorder, unspecified; F32.A Depression, unspecified; G43.909 Migraine, unspecified, not intractable, without status migrainosus; Z79.899 Other long term (current) drug therapy; Z88.5 Allergy status to narcotic agent; Z91.018 Allergy to other foods; Z88.2 Allergy status to sulfonamides; J30.2 Other seasonal allergic rhinitis
CPT/HCPCS: 36415; 58350; 58662; 81025; 85027; 86850; 86900; 86901; J1100; J2405

== ENCOUNTER → 2022-10-01 | Outpatient (CLI) | payer OTHER ==
[~2022-10-01] MED LIST changes: +OXYC1TAB23 PO
[2022-10-01 15:19] LABS: ALBUMIN 3.6 G/DL (3.2-5.2); CARBON DIOXIDE LEVEL 29 MMOL/L (20-31); CHLORIDE LEVEL 103 MMOL/L (98-107); POTASSIUM SERUM 4.8 MMOL/L (3.5-5.1); SODIUM LEVEL 137 MMOL/L (136-145)
[2022-10-01 15:29] LABS: HEMATOCRIT 38.3 % (36.0-47.0); HEMOGLOBIN 12.6 g/dl (12.0-15.5); MEAN CORPUSCULAR HEMOGLOBIN 29.9 pg (27.0-33.0); MEAN CORPUSCULAR HGB CONC 32.9 g/dl (32.0-36.5); PLATELET COUNT, AUTOMATED 305 10^3/uL (150-450); RED BLOOD COUNT 4.21 10^6/uL (4.00-5.40); WHITE BLOOD COUNT 8.2 10^3/uL (4.0-10.0)
[2022-10-01 15:38] LABS: ALKALINE PHOSPHATASE 85 U/L (46-116); ALT/SGPT 38 U/L (7.0-40); AST/SGOT 26 U/L (<34); BILIRUBIN,TOTAL 0.3 MG/DL (0.3-1.2); BLOOD UREA NITROGEN 15 MG/DL (9-23); CALCIUM LEVEL 9.2 MG/DL (8.5-10.1); CREATININE FOR GFR 0.54 MG/DL (0.55-1.30); GLOMERULAR FILTRATION RATE > 60.0 (>60); GLUCOSE, FASTING 94 MG/DL (60-100); THYROID STIMULATING HORMONE 1.018 uIU/ML (0.55-4.78); TOTAL 25(OH) VITAMIN D 25.3 NG/ML (20.0-100.0)
[2022-10-01 16:18] LABS: HEMOGLOBIN A1c 5.1 % (4.0-6.0)
[2022-10-01 22:07] LABS: TOTAL PROTEIN 6.8 G/DL (5.7-8.2)
== END ==
LOC: M PLALAB 13:32
PROVIDERS: ATTEND Obstetrics & Gynecology
DX: R63.5 Abnormal weight gain (principal)

== ENCOUNTER → 2022-12-03 | Outpatient (CLI) | payer OTHER ==
[~2022-12-03] MED LIST changes: +TOPI-254; -TOPI50TA9
== END ==
LOC: M RAD 08:50
PROVIDERS: ATTEND Registered Nurse
DX: J40 Bronchitis, not specified as acute or chronic (principal)

== ENCOUNTER → 2022-12-03 | Outpatient (CLI) | payer OTHER ==
[2022-12-03 10:39] LABS: HEMOGLOBIN 12.8 g/dl (12.0-15.5); MEAN CORPUSCULAR HEMOGLOBIN 29.4 pg (27.0-33.0); MEAN CORPUSCULAR HGB CONC 32.8 g/dl (32.0-36.5); MEAN CORPUSCULAR VOLUME 89.7 fl (80.0-96.0); PLATELET COUNT, AUTOMATED 277 10^3/uL (150-450); RED BLOOD COUNT 4.35 10^6/uL (4.00-5.40); WHITE BLOOD COUNT 8.1 10^3/uL (4.0-10.0)
[2022-12-03 11:10] LABS: FERRITIN 21.8 NG/ML (7.3-270.7); FOLATE > 24.0 NG/ML (>5.4); VITAMIN B12 LEVEL 1417 PG/ML (211-911)
[2022-12-03 11:11] LABS: ALBUMIN 3.8 G/DL (3.2-5.2); ALKALINE PHOSPHATASE 80 U/L (46-116); ALT/SGPT 24 U/L (7.0-40); AST/SGOT 13 U/L (<34); BILIRUBIN,TOTAL 0.3 MG/DL (0.3-1.2); BLOOD UREA NITROGEN 11 MG/DL (9-23); CARBON DIOXIDE LEVEL 30 MMOL/L (20-31); CHLORIDE LEVEL 106 MMOL/L (98-107); CHOLESTEROL LEVEL 154 MG/DL (<200); CHOLESTEROL RISK RATIO 3.71 (<5); CREATININE FOR GFR 0.55 MG/DL (0.55-1.30); GLOMERULAR FILTRATION RATE > 60.0 (>60); GLUCOSE, FASTING 85 MG/DL (60-100); HDL CHOLESTEROL 41.4 MG/DL (>40); IRON (FE) 42 UG/DL (50-170); LDL CHOLESTEROL 97.4 MG/DL (<100); NON-HDL-C 112.6 MG/DL; PERCENT SATURATION 9.9 % (13.2-45.0); POTASSIUM SERUM 3.8 MMOL/L (3.5-5.1); SODIUM LEVEL 139 MMOL/L (136-145); TOTAL IRON BINDING CAPACITY 426 UG/DL (250-425); TOTAL PROTEIN 7.1 G/DL (5.7-8.2); TRIGLYCERIDES LEVEL 76 MG/DL (<150)
== END ==
LOC: M LAB 08:55
PROVIDERS: ATTEND Registered Nurse
DX: K21.00 Gastro-esophageal reflux disease with esophagitis, without bleeding (principal); E66.01 Morbid (severe) obesity due to excess calories; Z68.43 Body mass index [BMI] 50.0-59.9, adult; Z98.84 Bariatric surgery status

== ENCOUNTER → 2023-03-17 | Outpatient (CLI) | payer OTHER ==
[~2023-03-17] MED LIST changes: +ETON1VAG7; -NUVAMIS2
[2023-03-17 12:46] LABS: HEMATOCRIT 39.8 % (36.0-47.0); HEMOGLOBIN 13.1 g/dl (12.0-15.5); MEAN CORPUSCULAR HEMOGLOBIN 29.5 pg (27.0-33.0); MEAN CORPUSCULAR HGB CONC 32.9 g/dl (32.0-36.5); MEAN CORPUSCULAR VOLUME 89.6 fl (80.0-96.0); PLATELET COUNT, AUTOMATED 295 10^3/uL (150-450); RED BLOOD COUNT 4.44 10^6/uL (4.00-5.40); WHITE BLOOD COUNT 8.2 10^3/uL (4.0-10.0)
[2023-03-17 12:57] LABS: INR 0.95; PARTIAL THROMBOPLASTIN TIME 28.6 SECONDS (24.8-34.2); PROTHROMBIN TIME 12.9 SECONDS (12.5-14.5)
[2023-03-17 13:33] LABS: IRON (FE) 55 UG/DL (50-170); PERCENT SATURATION 14.8 % (13.2-45.0); TOTAL IRON BINDING CAPACITY 372 UG/DL (250-425)
[2023-03-17 13:34] LABS: ALBUMIN 4.1 G/DL (3.2-5.2); ALKALINE PHOSPHATASE 78 U/L (46-116); ALT/SGPT 14 U/L (7.0-40); AST/SGOT < 8 U/L (<34); BILIRUBIN,TOTAL 0.4 MG/DL (0.3-1.2); BLOOD UREA NITROGEN 9 MG/DL (9-23); CALCIUM LEVEL 8.9 MG/DL (8.5-10.1); CARBON DIOXIDE LEVEL 23 MMOL/L (20-31); CHLORIDE LEVEL 106 MMOL/L (98-107); CREATININE FOR GFR 0.53 MG/DL (0.55-1.30); FERRITIN 8.7 NG/ML (7.3-270.7); FOLATE > 24.00 NG/ML (>5.4); FREE T3 4.1 PG/ML (2.3-4.2); FREE T4 1.13 NG/DL (0.89-1.76); GLOMERULAR FILTRATION RATE > 60.0 (>60); GLUCOSE, FASTING 101 MG/DL (60-100); POTASSIUM SERUM 3.6 MMOL/L (3.5-5.1); SODIUM LEVEL 138 MMOL/L (136-145); THYROID STIMULATING HORMONE 1.048 uIU/ML (0.55-4.78); TOTAL PROTEIN 6.9 G/DL (5.7-8.2); VITAMIN B12 LEVEL 897 PG/ML (211-911)
== END ==
LOC: M WUC 10:21
PROVIDERS: ATTEND Registered Nurse
DX: N93.9 Abnormal uterine and vaginal bleeding, unspecified (principal); R53.83 Other fatigue

== ENCOUNTER → 2023-04-01 | Outpatient (CLI) | payer OTHER ==
[~2023-04-01] MED LIST changes: -AMIT25TA17 PO; +AMIT25TA19 PO
== END ==
LOC: M WHC 09:28
PROVIDERS: ATTEND Physician Assistant
DX: M85.88 Other specified disorders of bone density and structure, other site (principal)

== ENCOUNTER → 2024-08-02 | Outpatient (REF) | payer OTHER ==
[~2024-08-02] MED LIST changes: +TOPI-21; -TOPI-254
== END ==
LOC: M PLALAB 14:17
PROVIDERS: ATTEND Advanced Practice Midwife
DX: Z53.9 Procedure and treatment not carried out, unspecified reason (principal)

== ENCOUNTER → 2024-08-12 | Outpatient (CLI) | payer OTHER ==
[2024-08-12 17:58] LABS: HEMATOCRIT 34.3 % (36.0-47.0); HEMOGLOBIN 11.3 g/dl (12.0-15.5); MEAN CORPUSCULAR HGB CONC 32.9 g/dl (32.0-36.5); MEAN CORPUSCULAR VOLUME 88.2 fl (80.0-96.0); PLATELET COUNT, AUTOMATED 299 10^3/uL (150-450); RED BLOOD COUNT 3.89 10^6/uL (4.00-5.40); WHITE BLOOD COUNT 9.3 10^3/uL (4.0-10.0)
[2024-08-12 18:09] LABS: HEMOGLOBIN A1c 5.2 % (4.0-6.0)
[2024-08-12 18:28] LABS: IRON (FE) 31 UG/DL (50-170)
[2024-08-12 18:38] LABS: FOLATE 21.16 NG/ML (>5.4); TOTAL 25(OH) VITAMIN D 21.6 NG/ML (20.0-100.0); VITAMIN B12 LEVEL 394 PG/ML (211-911)
[2024-08-12 19:01] LABS: HIV 1&2 SCREEN NEGATIVE (NEGATIVE)
[2024-08-12 19:09] LABS: HEPATITIS C VIRUS ABY INDEX < 0.02 INDEX (<0.8)
[2024-08-12 19:26] LABS: GC DNA AMPLIFICATION NEGATIVE (NEGATIVE)
== END ==
LOC: M PLALAB 14:54
PROVIDERS: ATTEND Advanced Practice Midwife
DX: Z34.81 Encounter for supervision of other normal pregnancy, first trimester (principal)

== ENCOUNTER → 2024-10-14 | Outpatient (CLI) | payer OTHER ==
[~2024-10-14] MED LIST changes: +GABA-1171 PO
== END ==
LOC: M RAD 12:51
PROVIDERS: ATTEND Obstetrics & Gynecology
DX: Z34.82 Encounter for supervision of other normal pregnancy, second trimester (principal); Z3A.21 21 weeks gestation of pregnancy

== ENCOUNTER 2024-10-17 15:19 | Emergency (ER) | payer OTHER ==
[~2024-10-17 15:19] MED LIST changes: -GABA-1171 PO
[2024-10-17] MEDS ORDERED: GABA-1171 PO (15:54)
== END 2024-10-17 15:25 | disposition admitted as inpatient to this hospital (09) ==
LOC: M ED 15:19
DX: O99.891 Other specified diseases and conditions complicating pregnancy (principal); Z53.20 Procedure and treatment not carried out because of patient's decision for unspecified reasons

== ENCOUNTER 2024-10-17 15:29 | Outpatient (CLI) | payer OTHER ==
[~2024-10-17] VITALS: Ht 154.9 cm; Wt 100.3 kg
[2024-10-17] MEDS ORDERED: GABA-1171 PO (15:54)
[2024-10-17 16:00] VITALS: BP 91/52
[2024-10-17] MEDS ORDERED: HOME MED LIST COMPLETE! XX SCH (16:05)
[2024-10-17 16:25] LABS: AMORPHOUS SEDIMENT SMALL (NEGATIVE); APPEARANCE, URINE HAZY (CLEAR); BACTERIA, URINE AUTO NEGATIVE (NEGATIVE); BILIRUBIN, URINE AUTO NEGATIVE (NEGATIVE); BLOOD, URINE BLOOD NEGATIVE (NEGATIVE); COLOR, URINE YELLOW (YELLOW); GLUCOSE, URINE (UA) AUTO NEGATIVE (NEGATIVE); KETONE, URINE AUTO NEGATIVE (NEGATIVE); LEUKOCYTE ESTERASE, URINE AUTO NEGATIVE (NEGATIVE); MUCUS, URINE SMALL (NEGATIVE); NITRITE, URINE AUTO NEGATIVE (NEGATIVE); PROTEIN, URINE AUTO NEGATIVE (NEGATIVE); RBC, URINE AUTO 0 /HPF (0-3); SPECIFIC GRAVITY URINE AUTO 1.021 (1.002-1.035); SQUAMOUS EPITHELIAL CELL UR AU 7 /HPF (0-6); WBC, URINE AUTO 1 /HPF (0-3)
== END 2024-10-17 16:56 | disposition home or self-care (01) ==
LOC: M LDO 15:29
PROVIDERS: ATTEND Advanced Practice Midwife
DX: O26.892 Other specified pregnancy related conditions, second trimester (principal); O99.842 Bariatric surgery status complicating pregnancy, second trimester; O99.342 Other mental disorders complicating pregnancy, second trimester; M54.41 Lumbago with sciatica, right side; F41.9 Anxiety disorder, unspecified; Z88.1 Allergy status to other antibiotic agents; Z88.2 Allergy status to sulfonamides; Z88.5 Allergy status to narcotic agent; Z91.018 Allergy to other foods; Z3A.21 21 weeks gestation of pregnancy
CPT/HCPCS: 81001; 87086; G0463

== ENCOUNTER → 2024-11-11 | Outpatient (CLI) | payer OTHER ==
[~2024-11-11] MED LIST changes: +GABA-1171 PO
== END ==
LOC: M WHC 12:18
PROVIDERS: ATTEND Nurse Practitioner Family
DX: Z34.80 Encounter for supervision of other normal pregnancy, unspecified trimester (principal); Z3A.25 25 weeks gestation of pregnancy

== ENCOUNTER → 2024-11-30 | Outpatient (CLI) | payer OTHER ==
[2024-11-30 17:25] LABS: HEMATOCRIT 31.6 % (36.0-47.0); HEMOGLOBIN 10.5 g/dl (12.0-15.5); MEAN CORPUSCULAR HEMOGLOBIN 29.2 pg (27.0-33.0); MEAN CORPUSCULAR HGB CONC 33.2 g/dl (32.0-36.5); PLATELET COUNT, AUTOMATED 336 10^3/uL (150-450); RED BLOOD COUNT 3.59 10^6/uL (4.00-5.40); WHITE BLOOD COUNT 10.2 10^3/uL (4.0-10.0)
[2024-11-30 17:59] LABS: IRON (FE) 56 UG/DL (50-170); PERCENT SATURATION 11.5 % (13.2-45.0); TOTAL IRON BINDING CAPACITY 488 UG/DL (250-425)
[2024-11-30 18:00] LABS: FOLATE > 24.00 NG/ML (>5.4); TOTAL 25(OH) VITAMIN D 31.8 NG/ML (20.0-100.0); VITAMIN B12 LEVEL 366 PG/ML (211-911)
[2024-11-30 18:01] LABS: FERRITIN 6.8 NG/ML (7.3-270.7)
[2024-11-30 18:22] LABS: HIV 1&2 SCREEN NEGATIVE (NEGATIVE)
[2024-11-30 18:30] LABS: HEPATITIS C VIRUS ABY INDEX 0.02 INDEX (<0.8)
[2024-11-30 19:47] LABS: Trichomonas vaginalis (AMP) NOT DETECTED (NEGATIVE)
[2024-11-30 20:11] LABS: GC DNA AMPLIFICATION NEGATIVE (NEGATIVE)
== END ==
LOC: M LAB 16:22
PROVIDERS: ATTEND Nurse Practitioner Family
DX: Z34.80 Encounter for supervision of other normal pregnancy, unspecified trimester (principal)

== ENCOUNTER → 2024-12-16 | Outpatient (CLI) | payer OTHER | LOC: M RAD 09:20 | PROVIDERS: ATTEND Obstetrics & Gynecology | DX: O99.843 Bariatric surgery status complicating pregnancy, third trimester (principal) ==

== ENCOUNTER 2024-12-30 | Emergency (ER) | payer OTHER | END 2024-12-30 00:18 | disposition left against medical advice (07) | LOC: M ED | DX: Z53.21 Procedure and treatment not carried out due to patient leaving prior to being seen by health care provider (principal) ==

== ENCOUNTER 2024-12-30 00:08 | Outpatient (CLI) | payer OTHER ==
[~2024-12-30] VITALS: Ht 154.9 cm; Wt 102.4 kg
[2024-12-30 00:34] VITALS: BP 99/55; O2SAT 98
== END 2024-12-30 02:50 | disposition home or self-care (01) ==
LOC: M LDO 00:08
PROVIDERS: ATTEND Specialist
DX: O26.893 Other specified pregnancy related conditions, third trimester (principal); O24.410 Gestational diabetes mellitus in pregnancy, diet controlled; O99.843 Bariatric surgery status complicating pregnancy, third trimester; O99.343 Other mental disorders complicating pregnancy, third trimester; R10.30 Lower abdominal pain, unspecified; F41.8 Other specified anxiety disorders; Z3A.32 32 weeks gestation of pregnancy
CPT/HCPCS: 59025; G0463

== ENCOUNTER 2025-02-21 15:17 | Inpatient (IN) | payer OTHER ==
[~2025-02-21] VITALS: Ht 154.9 cm; Wt 105.0 kg
[2025-02-21 15:52] VITALS: BP 102/60
[2025-02-21] MEDS ORDERED: OXYTOCIN DRIP 30 UNITS in IV 1 EA IV PRN (16:30)
[2025-02-21] MEDS ORDERED: LIDOCAINE 1% MDV 20 ML VIAL INFIL PRN (16:30)
[2025-02-21 16:39] LABS: PLATELET COUNT, AUTOMATED 273 10^3/uL (150-450)
[2025-02-21] MEDS: miSOPROStol 50 MCG 1/2 TABLET SL SCH (16:42)
[2025-02-21 17:36] LABS: HIV 1&2 SCREEN NEGATIVE (NEGATIVE)
[2025-02-21 17:44] LABS: HEPATITIS C VIRUS ABY INDEX 0.08 INDEX (<0.8)
[2025-02-21 20:05] VITALS: BP 111/57
[2025-02-21 21:27] VITALS: BP 124/60
[2025-02-21 21:58] VITALS: BP 113/59
[2025-02-21 23:10] VITALS: BP 112/60
[2025-02-21] MEDS: PROMETHAZINE 25MG/ML 1ML VIAL IV ONE (23:12)
[2025-02-21] MEDS: BUTORPHANOL 2 MG/ML 1 ML VIAL IV ONE (23:12)
[2025-02-21] MEDS: LR 1,000 ML IV SCH (23:15)
[2025-02-21 23:41] VITALS: BP 109/58
[2025-02-22] VITALS (72 sets, daily range): BP systolic 88–121; BP diastolic 41–70; O2SAT 98–100
[2025-02-22] MEDS ORDERED: LR 1,000 ML IV SCH (08:00)
[2025-02-22] MEDS: OXYTOCIN DRIP 30 UNITS in IV 1 EA IV SCH (08:14)
[2025-02-22] MEDS: PENICILLIN G POTASSIUM 5 MU IV 5 MU in DEXTROSE 5% (D5W) MINI-BAG PLU 100 ML IV STA (08:22)
[2025-02-22] MEDS ORDERED: FENTANYL 2 MCG/ML ROPIVACAINE 0.2% IN 0.9% NACL 100 ML IVBAG As Ordered ONE (10:52)
[2025-02-22] MEDS ORDERED: LR 500 ML IV PRN (10:55)
[2025-02-22] MEDS ORDERED: EPIDURAL/PCA KEYS XX PRN (10:55)
[2025-02-22] MEDS ORDERED: NALOXONE INJ 0.4MG/1ML VIAL IV PRN (10:55)
[2025-02-22] MEDS: FENTANYL/ROPIVACAINE/NACL BAG 100 ML EPIDURAL SCH (11:34)
[2025-02-22] MEDS: PEN G POT 3,000,000 UNIT/50 ML 3,000,000 UNIT in IV 1 EA IV SCH (12:55)
[2025-02-22] MEDS: ONDANSETRON 4MG 2ML VIAL IV PRN (15:55)
[2025-02-22] MEDS: diphenhydrAMINE 50 MG/ML VIAL IV PRN (17:23)
[2025-02-22] MEDS ORDERED: TRANEXAMIC ACID INJection 1,000 MG in D5W 100 ML IV ONE (20:20)
[2025-02-22] MEDS: TRANEXAMIC ACID INJection 1,000 MG in NS 100 ML IV PRN (20:43)
[2025-02-22 21:59] LABS: CORD GAS ABE A -11.4; CORD GAS HCO3 A 19.4 MMOL/L; CORD GAS O2 SAT A 46.6 %; CORD GAS PCO2 A 64.8 mmHg; CORD GAS PH A 7.095 UNITS; CORD GAS PO2 A 25.4 mmHg; CORD GAS SBC A 14.7 MMOL/L; CORD GAS TCO2 A 21.4 MMOL/L
[2025-02-22 22:04] LABS: CORD GAS ABE V -9.4; CORD GAS HCO3 V 18.9 MMOL/L; CORD GAS O2 SAT V 30.4 %; CORD GAS PCO2 V 50.5 mmHg; CORD GAS PH V 7.191 UNITS; CORD GAS PO2 V 16.2 mmHg; CORD GAS SBC V 15.7 MMOL/L; CORD GAS TCO2 V 20.4 MMOL/L
[2025-02-22] MEDS ORDERED: IBUPROFEN 600 MG TAB PO PRN (22:15)
[2025-02-22] MEDS ORDERED: ACETAMINOPHEN 325 MG TAB PO PRN (22:15)
[2025-02-22] MEDS ORDERED: METHYLERGONOVINE MALEATE 0.2 MG TAB PO PRN (22:15)
[2025-02-22] MEDS ORDERED: DOCUSATE SODIUM 100 MG CAPSULE PO PRN (22:15)
[2025-02-22] MEDS ORDERED: IBUPROFEN 800 MG TAB PO PRN (22:15)
[2025-02-22] MEDS ORDERED: RHOGAM 300MCG (1500IU) INJ IM SCH (22:15)
[2025-02-23 00:06] VITALS: BP 122/59; O2SAT 98
[2025-02-23] MEDS: ACETAMINOPHEN 500 MG TAB PO PRN (00:18)
[2025-02-23 06:13] VITALS: BP 104/53; O2SAT 99
[2025-02-23] MEDS: PRENATAL VITAMINS CHEWABLE TABLET PO SCH (08:09)
[2025-02-23 18:00] VITALS: BP 106/64; O2SAT 97
[2025-02-23] MEDS: DIBUCAINE 1% OINTMENT 30 GM TOP PRN (20:18)
[2025-02-23] MEDS: SERTRALINE HCL 25 MG TABLET PO SCH (20:35)
[2025-02-23] MEDS: SIMETHICONE 80MG CHEW TAB PO PRN (20:36)
[2025-02-24 06:00] VITALS: BP 113/56; O2SAT 99
[2025-02-24] MEDS: MEASLES,MUMPS,RUBELLA VACCINE INJ (MMR-II) SC.IMMUN ONE (07:55)
== END 2025-02-24 12:20 | disposition home or self-care (01) | DRG 560 ==
LOC: M LDI 15:17 → M OBS 02-22 23:17
PROVIDERS: ADMIT Specialist; ATTEND Specialist
PROC: 3E0P7GC Introduction of Other Therapeutic Substance into Female Reproductive, Via Natural or Artificial Opening (ICD-10-PCS; 2025-02-21)
PROC: 3E033VJ Introduction of Other Hormone into Peripheral Vein, Percutaneous Approach (ICD-10-PCS; 2025-02-21)
PROC: 10D07Z6 Extraction of Products of Conception, Vacuum, Via Natural or Artificial Opening (ICD-10-PCS; principal; 2025-02-22)
DX: O69.82X0 Labor and delivery complicated by other cord entanglement, without compression, not applicable or unspecified (principal); O99.824 Streptococcus B carrier state complicating childbirth; Z37.0 Single live birth; Z3A.40 40 weeks gestation of pregnancy; O76 Abnormality in fetal heart rate and rhythm complicating labor and delivery